=== PATIENT | female | born 1945 | race Caucasian/White ===

== ENCOUNTER 2019-01-19 14:18 | Inpatient (IN) | payer OTHER, MEDICARE ==
[~2019-01-19] VITALS: Ht 162.6 cm; Wt 45.5 kg
--- NOTE | 2019-01-19 14:28 | NUR ---
REC'D A 73/F IN RM 1T RAMÍREZ FROM [facility] IN [place] FOR CLOGGED GTUBE SINCE THE AM. HX OF HIV, RESP FAILURE. TRACHEOSTOMY- NO LONGER DEPENDENT ON RESPIRATORY, GASTROSTOMY NOTED TO MID RADHA, AND BAH. PT ALERT AND AWAKE, NONVERBAL, RESP E/U, IN NO ACUTE DISTRESS.
--- NOTE | 2019-01-19 14:33 | NUR ---
DR RAMSEY AT BEDSIDE FOR MSE.
--- NOTE | 2019-01-19 14:41 | NUR ---
DR RAMSEY AT BEDSIDE TO DECLOGGED GTUBE.
--- NOTE | 2019-01-19 15:02 | NUR ---
PER DR RAMSEY, UNABLE TO DECLOG GTUBE WITH HYDROGEN PEROXIDE, 7UP AND GTUBE BRUSH.
--- NOTE | 2019-01-19 15:13 | NUR ---
CENTRAL LINE NOTED TO LEFT SIDE OF NECK.
[2019-01-19] MEDS ORDERED: CIPRO250 MG PO (15:46)
[2019-01-19] MEDS ORDERED: NEPHRO-VITE VITA1 EA RC (15:47)
[2019-01-19] MEDS ORDERED: ASPIR 8181 MG GT (15:48)
[2019-01-19] MEDS ORDERED: NOR5 PEG (15:48)
[2019-01-19] MEDS ORDERED: PEPCID20 MG GT (15:49)
[2019-01-19] MEDS ORDERED: HYDRALAZINE HCL50 MG GT (15:51)
[2019-01-19] MEDS ORDERED: COLACE100 MG (15:52)
[2019-01-19] MEDS ORDERED: LEVOTHYROXIN0.025 M2 GT (15:52)
--- NOTE | 2019-01-19 16:04 | NUR ---
[facility] FROM [facility] APPROVED FOR INPATIENT OBSERVATION. OFFICE MESSENGER LUCY AND SCARLETT MADE AWARE. DR RAMSEY MADE AWARE.
[2019-01-19 16:09] LABS: BASOPHIL % 0.3 % (0-2); PLATELET COUNT 237 x10^3mcL (130-400)
[2019-01-19 16:11] LABS: RED CELL DISTRIBUTION WIDTH 16.5 % (11.5-14.5)
[2019-01-19 16:26] LABS: CALCIUM 8.6 mg/dL (8.5-10.1); CARBON DIOXIDE 25.1 mmol/L (21-32); CHLORIDE SERUM 110 mmol/L (98-107); CREATININE SERUM 0.7 mg/dL (0.6-1.0); GLUCOSE SERUM 102 mg/dL (74-106); POTASSIUM SERUM 3.4 mmol/L (3.5-5.1); SODIUM SERUM 146 mmol/L (136-145)
--- NOTE | 2019-01-19 16:29 | NUR ---
report given to amol vernon to assume care of the pt.
[2019-01-19 16:30] LABS: ALKALINE PHOSPHATASE 120 U/L (46-116); ALT/SGPT 19 U/L (14-59); AST/SGOT 15 U/L (15-37); BILIRUBIN TOTAL 0.31 mg/dL (0.20-1.00); TOTAL PROTEIN, SERUM 6.9 g/dL (6.4-8.2)
--- NOTE | 2019-01-19 16:35 | NUR ---
RIGHT WRIST CONTRACTED. PINK BANDAGE NOTED TO SACRUM. MULTIPLE ECCHYMOYSIS NOTED TO LEFT ARM.
[2019-01-19 16:36] LABS: ALBUMIN 1.9 g/dL (3.4-5.0)
--- NOTE | 2019-01-19 16:50 | NUR ---
RECEIVED PT FROM ED VIA GUERNEY, CAME IN DUE TO G-TUBE MALFUNCTIONING. PT IS ALERT AND AWAKE, NON-VERBAL. DOES NOT FOLLOW SIMPLE COMMANDS. NO SOB NOTED, LUNG SOUNDS DIMINISHED ON BASES, ON 1LPM/NC VIA TRACHEOSTOMY, O2 FBC=854%. W/ NON-PRODUCTIVE COUGH. NO S/S OF CHEST PAIN/PRESSURE. ABDOMEN IS SOFT, BOWEL SOUNDS ACTIVE. W/ PEG TUBE, CLAMPED. W/ BAH CATHETER SAMI 16, DRAINING W/ YELLOW, MILD CLOUDY URINE. W/ SACRAL ULCER COVERED W/ OPTIFOAM DRESSING, BUE SKIN TEARS W/ VERSATEL IN PLACE, AND BUE ECCHYMOSIS. RIGHT EYE IS RED, NO DRAINAGE NOTED. PT TURNED AND REPOSITIONED ON THE RIGHT SIDE, BLE ELEVATED W/ PILLOW. ON AIR MATTRESS. HOB ELEVATED AT 30 DEG. W/ RIJ TRIPLE LUMEN. HOB ELEVATED AT 30 DEG. SIDE RAILS UPX2. CALL LIGHT ON REACH. ENDORSED TO PRIMARY NURSE CADEN FOR CONTINUITY OF CARE
[2019-01-19 17:14] VITALS: BP 167/86
[2019-01-19 18:10] LABS: MAGNESIUM 1.9 mg/dL (1.8-2.4); PHOSPHOROUS 3.7 mg/dL (2.5-4.9)
[2019-01-19 18:11] LABS: CHOLESTEROL/HDL RATIO 2.6
--- NOTE | 2019-01-19 18:54 | NUR ---
NO ACUTE CHANGES AT THIS TIME. NO ACUTE RESP DISTRESS OR SOB NOTED. WILL ENDORSE TO INCOMING RN.
[2019-01-19] MEDS ORDERED: NORCO1 TA2 PEG (19:16)
--- NOTE | 2019-01-19 20:00 | NUR ---
RECEIVED PT IN BED, AWAKE/ALERT. NON VERBAL. UNABLE TO FOLLOW SIMPLE COOMMANDS. TRACH IN PLACE , WITH 02 AT 1L/MIN VIA TRACH COLLAR. HOB ELEVATED, NO ACUTE DISTRESS NOTED. GT CLAMPED. NPO MAINTAINED. ABD. SOFT,NON DISTENDED. BS ACTIVE. BAH CATH INTACT AND DRAINING YELLOW COLOR URINE. OPTIFOAM DRESSING TO SACRAL ULCER, SKIN TEAR TO BUE WITH VERSOTEL DRESSING. ECCHYMOTIC AREAS ALSO NOTED ON LUE.LT ARM CONTRACTED. TURNED AND REPOSITIONED. LIJ TRIPLE LUMEN INTACT AND ALL PORTS PATENT. HS CARE DONE. WILL CONTINUE TO MONITOR.
[2019-01-19 21:00] VITALS: BP 157/88
[2019-01-19 21:04] VITALS: BP 157/88
--- NOTE | 2019-01-19 23:04 | NUR ---
STARTED ON IVF, NS AT 100ML/HR, INFUSING VIA LIJ . WILL CONTINUE TO MONITOR.
[2019-01-20 01:08] LABS: UA SPECIFIC GRAVITY 1.015 (1.005-1.035); microscopic required? YES; urine erythrocyte NEGATIVE (NEGATIVE)
[2019-01-20 01:13] LABS: AMPHETAMINE QUAL UR NONE DETECTED (See below)
--- NOTE | 2019-01-20 02:13 | NUR ---
TURNED AND REPOSITIONED Q2HRS AND PRN. SUCTIONED PRN, KOJO. WELL. KEPT COMFORTABLE. IVF INTACT AND INFUSING WELL. WILL CONTINUE TO MONITOR.
--- NOTE | 2019-01-20 06:15 | NUR ---
B/P READS 194/97, , DR JAMES MADE AWARE, ORDER RECEIVED . HYDRALAZINE IV GIVEN ORDERED. WILL CONTINUE TO MONITOR.
--- NOTE | 2019-01-20 06:17 | NUR ---
AFEBRILE. IVF INTACT AND INFUSING WELL VIA LIJ. RESP. EVEN AND UNLABORED. [address] VIA TRACH COLLAR.NO ACUTE DISTRESS NOTED. TRACH CARE DONE. BAH CATH IN PLACE AND PATENT. NO BM DURING THE NIGHT. TURNED AND REPOSITIONED Q2HRS AND PRN. KEPT COMFORTABLE. WILL CONTINUE TO MONITOR.
[2019-01-20 07:05] VITALS: BP 141/118
[2019-01-20 08:21] VITALS: BP 140/100
[2019-01-20 09:01] LABS: BASOPHIL % 0.2 % (0-2); CALCIUM 8.6 mg/dL (8.5-10.1); CARBON DIOXIDE 23.6 mmol/L (21-32); CHLORIDE SERUM 110 mmol/L (98-107); CREATININE SERUM 0.7 mg/dL (0.6-1.0); GLUCOSE SERUM 79 mg/dL (74-106); PLATELET COUNT 309 x10^3mcL (130-400); POTASSIUM SERUM 3.5 mmol/L (3.5-5.1); SODIUM SERUM 145 mmol/L (136-145)
[2019-01-20 09:04] LABS: RED CELL DISTRIBUTION WIDTH 16.7 % (11.5-14.5)
--- NOTE | 2019-01-20 09:40 | NUR ---
PEG TUBE TO MID ABDOMEN REMOVED BY DR. LLANOS AT BEDSIDE. PT TOLERATED WELL. NO S/S OF PAIN. SITE WNL, SHRIMP TRAWLER, NO DRAINAGE NOTED. WILL CONTINUE TO MONITOR.
--- NOTE | 2019-01-20 11:45 | NUR ---
PT LAYING IN BED, EYES OPEN. NONVERBAL/MUTE. NO S/S OF ACUTE DISTRESS. NO SOB ON 1LNC TO TRACH, TRACH MIDLINE. PT CALM/COOPERATIVE AT THIS TIME. FALL PREC IN PLACE. OPTIFOAM CHANGED TO SACRUM, NOW CDI. BAH IN TACT DRAINING TO GRAVITY. BED IN LOW POSITION. CALL LIGHT WITHIN REACH. HOB ELEVATED. WILL CONTINUE TO MONITOR.
[2019-01-20 11:55] VITALS: BP 145/87
--- NOTE | 2019-01-20 13:30 | NUR ---
WOUND CARE EVALUATION NOTE: REASON FOR EVALUATION: PRESSURE ULCER WOUND SKIN ASSESSMENT DONE WITH PRIMARY RN ON THIS 73 Y/O FEMALE PT ADMITTED FROM [facility] WITH SACRALCOCCYX PRESSURE ULCER, SKIN WARM AND DRY,AND MULTIPLE ECCHYMOSIS TO UPPER EXTREMITIES. BLE NO HAIR GROWTH. DORSAL PEDAL PULSES PRESENT AND NORMAL. PLAN OF CARE DISCUSSED WITH PRIMARY RN. INTEGUMENTARY: -TRACH SITE EDMUND STOMA SKIN DRY AND CLEAN. SKIN INTACT. -GT SURGICAL SITE 0.5X0.5CM DEPTH UTD. SITE CLEAN AND DRY, GT WAS REMOVED. -MULTIPLE SKIN TEARS TO R/L FOREARMS WITH LARGEST TO RIGHT ARM 2.5X1 CM, AND LEFT FOREARMS 1.8X1 CM -SACRALCOCCYX PRESSURE INJURY STAGE 4, MUSCLE OBSERVED, 100 % GRANULATING TISSUE WITH 7X10X2.3CM, UNDERMINING 2.5 CM TOWARD 5 O'CLOCK DIRECTION, BUTTERFLY SHAPE, DARK PURPLE COLOR TO WOUND EDGE, EDMUND-WOUND SKIN INTACT, MODERATE AMOUNT PURULENT DRAINAGE, MILD ODOR -BILATERAL HEELS BLANCHABLE REDNESS RECOMMENDATIONS: -WOUND CULTURE OBTAINED, PENDING RESULT -CLEANS GT SITE WITH NS. PAT DRY AND COVER WITH DRY DRESSING. -CLEANSE SKIN TEARS TO R/L FORARMS WITH NS. PAT DRY, APPLY VESATEL DRESSING Q5 DAYS AND PRN IF SOILING -CLEANSE SACRALCOCCYX PRESSURE ULCER WITH WOUND CARE SOLUTION, PAT DRY, PACK WITH CALCIUM ALGINATE DRESSING TO WOUND BED, COVER WITH 4X4 DRESSING AND OPTIFOAM QD AND PRN IF SOILING -HEEL PROTECTORS BILATERAL HEELS -TURN AND REPOSITION PATIENT Q 2H -ASSESS AND MONITOR SKIN CONDITION DURING POSITION CHANGE -OFFLOAD BILATERAL HEELS BY PLACING PILLOWS UNDER CALVES AT ALL TIMES, UNLESS OTHERWISE CONTRAINDICATED -PRESSURE REDISTRIBUTION SURFACE THERAPY -KEEP SKIN CLEAN AND DRY AT ALL TIMES ALL ABOVE RECOMMENDATIONS DISCUSSED WITH PRIMARY RN WILL FOLLOW UP Q7-10 DAYS, PLEASE CONTACT WOUND CARE NURSE FOR ANY QUESTIONS AND CHANGE OF SKIN CONDITION
--- NOTE | 2019-01-20 16:06 | NUR ---
WOUND CARE PROVIDED PER PHYSICIAN ORDER: SKIN TEARS TO RUE X1, LUE X2 CLEANSED WITH NS, GENTLY PATTED DRY, VERSATEL APPLIED TO SKIN TEARS. GUTUBE SITE CLEANSED WITH NS, PATTED DRY, COVERED WITH DRY DRESSING. PT TOLERATED WELL. NO S/S OF ACUTE DISTRESS. WILL CONTINUE TO MONITOR.
[2019-01-20 16:55] VITALS: BP 160/89
[2019-01-20 18:16] VITALS: BP 137/91
--- NOTE | 2019-01-20 18:17 | NUR ---
PT RESTING IN BED WITH BOTH EYES CLOSED. NO S/S OF ACUTE DISTRESS. NO SOB ON 1L TO TRACH COLLAR. BP TRENDING DOWN, SEE CHART. NO S/S OF PAIN. DRESSINGS TO BUE/SACRAL COCCYX CDI. LIJ WNL, PATENT AND FLUSHES WELL. IV FLUIDS FLOWING. DRESSING CDI. BLE ELEVATED. AIR MATTRESS IN PLACE. HOB ELEVATED. BAH INTACT DRAINING TO GRAVITY WITH NO DEPENDENT LOOPS. BED IN LOW POSITION. CALL LIGHT WITHIN REACH. SIDE RAILS UPX2. AIR MATTRESS IN PLACE. WILL ENDORSE TO ONCOMING SHIFT.
--- NOTE | 2019-01-20 20:00 | NUR ---
RECEIVED PT IN BED, AWAKE, NON VERBAL, UNABLE TO FOLLOW COMMANDS. 02 AT 1L/MIN VIA TRACH. KOJO. WELL. NO ACUTE DISTRESS NOTED. DRESSING TO ABD, GT SITE DRESSING DRY AND INTACT. REMAINS NPO , NO N/V NOTED. IVF, NS AT 100ML/HR, INTACT AND INFUSING VIA LIJ TRIPLE LUMEN, SITE DRESSING DRY AND CLEAN. ALL PORTS PATENT. BAH CATH INTACT AND DRAINING YELLOW COLOR URINE. DRESSINGS TO SACRAL AREA , SKIN TEARS TO BUE DRY AND INTACT. ECCHYMOSIS TO BUE, ON AIR MATTRESS.HEEL PROTECTORS IN PLACE. WILL TURN AND REPOSITION Q2HRS AND PRN.WILL CONTINUE TO MONITOR.
[2019-01-20 20:18] VITALS: BP 153/79
--- NOTE | 2019-01-20 22:20 | NUR ---
TURNED AND REPOSITIONED Q2HRS AND PRN. PT PLACED ON SUPINE POSITION AT THIS TIME. WILL CONTINUE TO MONITOR.
--- NOTE | 2019-01-21 03:13 | NUR ---
SUCTIONED PRN. TURNED AND REPOSITIONED FOR COMFORT. IVF INTACT AND INFUSING WELL. WILL CONTINUE TO MONITOR.
--- NOTE | 2019-01-21 03:15 | NUR ---
DR JAMES MADE AWARE OF ABNORMAL LAB RESULT.
--- NOTE | 2019-01-21 04:00 | NUR ---
PLACED ON CONTACT ISOLATION FOR POSITIVE MRSA NARES. DR ERIKA FALLON.
[2019-01-21 04:47] VITALS: BP 151/76
--- NOTE | 2019-01-21 06:11 | NUR ---
AFEBRILE AND VITAL SIGNS STABLE. RESP. EVEN AND UNLABORED. 02 AT 1L/MIN VIA TRACH COLLAR, KOJO. WELL. SUCTIONED PRN. TRACH CARE DONE. HOB ELEVATED. NPO MAINTAINED. IVF, D5NS AT 100ML/HR INTACT AND INFUSING VIA LIJ. TRIPLE LUMEN. BAH CATH INTACT AND PATENT. TURNED AND REPOSITIONED Q2HRS AND PRN. KEPT COMFORTABLE. WILL CONTINUE TO MONITOR.
--- NOTE | 2019-01-21 07:26 | NUR ---
RECEIVED PT FROM SHIFT NURSE ASLEEP BUT AROUSABLE. RESP EVEN AND UNLABORED ON 1L TRACH. IV INTACT AND PATENT. BAH CATH IN PLACE. FALL PRECAUTIONS IN PLACE. BED IN LOW POSITION. CALL LIGHT WITHIN REACH. WILL BE ENDORSED.
[2019-01-21 08:09] VITALS: BP 158/79
--- NOTE | 2019-01-21 10:15 | NUR ---
PT AWAKE RESTING IN BED. NO ACUTE DISTRESS NOTED. BED IN LOW POSITION. WILL CONTINUE TO MONITOR.
[2019-01-21 10:39] VITALS: Ht 162.6 cm; Wt 45.5 kg
--- NOTE | 2019-01-21 11:56 | NUR ---
PT LEFT FOR PROCEDURE.
--- NOTE | 2019-01-21 13:30 | NUR ---
PT BACK FROM PROCEDURE.
--- NOTE | 2019-01-21 15:10 | NUR ---
PT ASLEEP BUT AROUSABLE. NO ACUTE DISTRESS NOTED. BED IN LOW POSITION. CALL LIGHT WITHIN REACH. WILL CONTNUE TO MONITOR.
[2019-01-21 16:35] VITALS: BP 113/63
--- NOTE | 2019-01-21 16:59 | NUR ---
CLEANSED WITH NS AND CHANGED DRESSING TO BUE. CLEANED SACRAL AREA WITH NS AND PACKED WITH DRY DRESSING. APPLIED OPTIFOAM.
--- NOTE | 2019-01-21 18:05 | NUR ---
PT ASLEEP BUT AROUSABLE. NO ACUTE DISTRESS NOTED. RESP EVEN AND UNLABORED ON 2L TRACH. BAH CATH IN PLACE DRAINING YELLOW URINE. GTUBE FEEDING AT 30 ML AND TOLERATING WELL. FALL PRECAUTIONS IN PLACE. BED IN LOW POSITION. WILL BE ENDORSED.
--- NOTE | 2019-01-21 19:20 | NUR ---
REC'D PT FROM DAY NURSE. PT RESTING IN BED AND AWAKE. NONVERBAL. DOES NOT FOLLOW COMMANDS. PERRLA. NO FACIAL DROOP. MED SURG, NO TELE. NO S/SX OF CP. TRACH SECURED WITH COLLAR. 2L, 99%. PT SOUNDS CONGESTED, SUCTIONED WHITE SPUTUM. RT PROTOCOL. ASP PREC. ABD SOFT/ROUND/NONTENDER. PEG TO LUQ INFUSING JEVITY 1.2 @ 30 ML/HR WITH 30 ML FWF Q6H. GOAL RATE 50 ML/HR. NO RESIDUAL. ABD DRESSING TO ABD CDI. BAH DRAINING YELLOW URINE TO GRAVITY. EDEMA TO RH. CONTRACTURES BUE/BLE. AIR MATTRESS IN PLACE. REPOSITIONING Q2H. SKIN TEARS BUE WITH VERSATEL DRESSINGS CDI. ECCHYMOSIS BUE. OPTIFOAM DRESSING TO COCCYX CDI. LIJ CENTRAL LINE. X1 PORT INFUSING D5NS @ 100 ML/HR. X2 PORTS FLUSHED AND PATENT. CALL LIGHT WITHIN REACH, BED AT LOWEST POSITION, BED ALARM ON, SIDE RAILS UP X3. WILL CONTINUE TO MONITOR.
[2019-01-21 20:50] VITALS: BP 176/97
--- NOTE | 2019-01-21 20:51 | NUR ---
BP ELEVATED 176/97 AND 167/109. DR. LIRIANO MADE AWARE SCHEDULED BP MEDS HAVE BEEN MISSED X2 DAYS D/T MALFUNCTIONING PEG. STATED OK TO GIVE PRN IV HYDRALIZINE AND RESUME PO MEDS IN AM.
--- NOTE | 2019-01-21 20:55 | NUR ---
UNABLE TO GIVE IV HYDRALIZINE BC PT IS MED SURG. DR. LIRIANO AND DR. JAMES MADE AWARE. STATED WILL ORDER PO HYDRALIZINE.
--- NOTE | 2019-01-21 21:40 | NUR ---
HYDRALIZINE 20 MG GIVEN VIA PEG FOR ELEVATED BP. NO RESIDUAL NOTED. TF INCREASED TO 40 ML/HR. GOAL 50 ML/HR. WILL CONTINUE TO MONITOR.
--- NOTE | 2019-01-21 22:50 | NUR ---
BP STILL ELEVATED S/P HYDRALIZINE VIA PEG. CURRENT BP 192/79. DR LIRIANO AND DR JAMES MADE AWARE. STATED WILL PUT PT ON TELE AND GIVE IV HYDRALIZINE.
--- NOTE | 2019-01-21 23:18 | NUR ---
TELE 9 APPLIED, NSR WITH PAC'S. PT HAS A CONGESTED COUGH. SUCTIONED SCANT CLEAR TO WHITE SPUTUM. REPOSITIONED. HOB UP. TF INFUSING @ 40 ML/HR. HEELS/ELBOWS OFFLOATED. WILL CONTINUE TO MONITOR.
[2019-01-22] VITALS (8 sets, daily range): BP systolic 105–173; BP diastolic 61–88
--- NOTE | 2019-01-22 | NUR ---
BP 167/71, HR 93. DR. JAMES MADE AWARE. NO FURTHER ORDERS. OK TO JUST MONITOR. ALSO MADE AWARE OF GRAM STAIN RESULTS OF WOUND CULTURE.
--- NOTE | 2019-01-22 01:22 | NUR ---
PT RESTING IN BED WITH EYES CLOSED. NO SIGNS OF DISTRESS OR PAIN NOTED. BREATHING EVEN/UNLABORED ON 1L O2 VIA TRACH COLLAR. REPOSITIONED. LAYING IN LOW FOWLERS POSITION. HEELS/ELBOWS OFFLOADED. RESIDUAL CHECKED PER PROTOCOL: NONE. TF INFUSING @ 40 ML/HR. CALL LIGHT WITHIN REACH, BED AT LOWEST POSITION.
--- NOTE | 2019-01-22 03:36 | NUR ---
TF INFUSING @ 40 ML/HR, NO RESIDUAL. RATE INCREASED TO 50 ML/HR PER ORDER. GOAL RATE ACHIEVED. PT REPOSITIONED. RESTING COMFORTABLY IN BED. NO S/SX OF PAIN NOTED. RESPIRATIONS EVEN/UNLABORED. WILL CONTINUE TO MONITOR.
--- NOTE | 2019-01-22 04:55 | NUR ---
PAGEGATED DR. JAMES. REQUESTED TO CHANGE PRILOSEC TO PROTONIX. UNABLE TO ADMINISTER PRILOSEC THROUGH GT. ALSO REMINDED OF WOUND CX GROWING GRAM NEG BACILLI.
--- NOTE | 2019-01-22 06:11 | NUR ---
PT AWAKE AND RESTING IN BED. BREATHING EVEN/UNLABORED ON 1L VIA TRACH COLLAR. SPO2 100%. PT HAS A CONGESTED COUGH. SUCTIONED PRN. PT HAS BEEN REPOSITIONED Q2H. TF INFUSING @ 50 ML/HR, NO RESIDUAL. BP 173/84, HR 91. DR. JAMES MADE AWARE. AM BP MEDS GIVEN EARLY PER ORDER. BAH CARE PROVIDED. CLEANSED WITH CHG WIPES. LAB AT BEDSIDE TO DRAW BLOOD. NO BLOOD RETURN FROM CENTRAL LINE. CALL LIGHT WITHIN REACH, BED AT LOWEST POSITION. WILL ENDORSE TO DAY NURSE.
[2019-01-22 06:46] LABS: BASOPHIL % 0.2 % (0-2); PLATELET COUNT 250 x10^3mcL (130-400)
--- NOTE | 2019-01-22 07:00 | NUR ---
RECEIVED REPORT FROM [place] RN, PT IN NO ACUTE DISTRESS
[2019-01-22 07:16] LABS: CALCIUM 7.8 mg/dL (8.5-10.1); CHLORIDE SERUM 115 mmol/L (98-107); CREATININE SERUM 0.6 mg/dL (0.6-1.0); GLUCOSE SERUM 141 mg/dL (74-106); POTASSIUM SERUM 3.1 mmol/L (3.5-5.1); SODIUM SERUM 148 mmol/L (136-145)
--- NOTE | 2019-01-22 07:20 | NUR ---
PT RESTING IN BED, SLEEPING BUT EASILY AROUSABLE, NON-VERBAL, NOT FOLLOW COMMANDS. PERRLA. NO FACIAL DROOP. TELE # 9, NSR, HR NOTED 101 AT THIS TIME, TRACH SECURED WITH COLLAR, MIDLINE, 1L/MIN, 100%, DIM BLL, SUCTIONED PRN RT PROTOCOL AT BEDSIDE. ASPIRATION PRECAUTION, HOB ELEVATED, ABD SOFT, ROUND AND NONTENDER TO TOUCH, PEG TO LUQ INFUSING JEVITY 1.2 @ 50 ML/HR WITH 30 ML FWF Q6H. BS HYPOACTIVE X 4, DRESSING TO ABD CDI. BAH PATENT AND DRAINING YELLOW URINE TO GRAVITY. EDEMA TO RH 1+, PALP PULSES, CONTRACTURES BUE/BLE. LALM, REPOSITIONING Q2H. SEE SKIN ASSESSMENT, DRESSING CDI, LIJ CENTRAL LINE PATENT, DRESSING CDI, X1 PORT INFUSING D5NS @ 100 ML/HR. X2 PORTS FLUSHED AND PATENT. CALL LIGHT WITHIN REACH, BED AT LOWEST POSITION, BED ALARM ON, SIDE RAILS UP X2. WILL CONTINUE TO MONITOR.
[2019-01-22 07:44] LABS: RED CELL DISTRIBUTION WIDTH 17.3 % (11.5-14.5)
--- NOTE | 2019-01-22 09:35 | NUR ---
PT IN NO ACUTE RESP DISTRESS, IN BED, AM MED GIVEN PER MD ORDER, TAKEN WELL, NO ASE NOTED AT THIS TIME, ALL NEEDS ADDRESSED, SAFETY PROTOCOL FOLLOWED, CONTINUE TO MONITOR
--- NOTE | 2019-01-22 10:51 | NUR ---
FAMILY MEMBER CALLED AND GOT UPDATED W/ PT NEW ORDER AND CONDITION, QUESTIONS ASKED AND ANSWERED, NO FURTHER CONCERNS NEEDED AT THIS TIME
--- NOTE | 2019-01-22 12:42 | NUR ---
BAH CATH CARE DONE, BAH PATENT AND INFUSING WELL W/ NO OBSTRUCTION, PT IN BED W/ NO ACUTE RESP DISTRESS, ALL NEEDS ADDRESSED AT THIS TIME, ASSISTED TURNING Q2H, CONTINUE TO MONITOR
--- NOTE | 2019-01-22 13:25 | NUR ---
WOUND CARE DONE AT BEDSIDE, PT TAKEN WELL, IN NO ACUTE DISTRESS, SAFETY PROTOCOL FOLLOWED, ASSISTED TO TURN Q2H, TOLERATED WELL, CONTINUE TO MONITOR
--- NOTE | 2019-01-22 13:33 | NUR ---
Initial Nutrition Assessment: 243T/A JULIO GUSTAFSON IA HR Dx: G- tube malfunction PMHx: HIV, HTN, developmental delay, acute/chronic respiratory failure s/p tracheostomy and s/p PEG tube placement, Vit B12 deficiency, Anemia of Chronic Disease, Chronic Kidney Disease, Atrial fibrillation PSHx: Other (G tube placement) Labs: NA 148H, K 3.1L, BG 141H, HGB 7.4L Meds: D 5%, norco, synthyroid, zofran Diet: TF Jevity 1.2 @ 30 ml/hr, goal 50 ml/hr, FWF 30 ml Q6H PO Intake: NPO Ht: 162.56 cm (64") Wt: 45.5 kg (100#) BMI: 17.2 kg/m2 Bed scale: 45 kg IBW: 120# (55 kg) %IBW: 83 UBW: unable to access Age: 73/F Food Allergies: NKFA Skin: sacral ulcer, skin tear on arm Alex: 12 Edema: trace arm GI: Last BM: 01/20 Per H&P, Pt is a 73 yo F with history of HIV, HTN, developmental delay, acute/chronic respiratory failure s/p tracheostomy and s/p PEG tube placement who was brought to ED by ambulance from [facility] for an obstructed G-tube since morning of 01/19/19. RDN Visit (01/22): Patient appeared extremely emaciated. Jevity 1.2 was running at goal rate of Per progress note (01/21) Patient scheduled to have PEG tube placed today with . 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 Patient developmentally delayed and nonverbal at baseline. Per RN Thi, patient is receiving IV fluids and therefore FWF are only @ 30 ml Q6H. Discussed with her the importance of increasing FWF once IV fluids as D/C'ed. Discussed recommendations with HSE ADVISOR Murray. Problem with: N/V/D/C: none per RN Problems with: Chewing/Swallowing: N/A Current appetite: unable to access Recent wt change: unable to access %wt change: n/a Vitamin/Supplement use: unable to access Special diet at home: unable to access Physical activity: bed bound Nutrition education given: not appropriate at this time as patient is non-verbal Food-drug interactions: none Education given: n/a Estimated Nutritional Needs Based on current body weight 45 kg Energy: 6850-0030 kcal/d (30-35 kcal/kg) Protein: 45-54 g/d (1.0-1.2 g/kg) - HIV vs CKD Fluid: 6633-3459 ml/d (1 ml/kcal) or per doctor Nutrition Diagnosis 1. Malnutrition related to increased metabolic demands, HIV, G-tube dependence as evidenced by BMI 17.2 kg/m2 Intervention 1. Recommend continuing Jevity 1.2 @ 50 ml/hr. FWF 60 ml Q4H. This provides 1440 kcal and 67g protein, 968 ml free water. 2. Discussed recommendations with HSE ADVISOR Murray. Increase FWF to 60 ml Q4H once other forms of IV hydration are D/C'ed. Monitor/Evaluate Goal: TF intake at least 75% of estimated needs Monitor: TF intake/ tolerance, Labs, GI function F/U in 2-3 days as high risk 01/24-
--- NOTE | 2019-01-22 13:34 | NUR ---
1. Recommend continuing Jevity 1.2 @ 50 ml/hr. FWF 60 ml Q4H. This provides 1440 kcal and 67g protein, 968 ml free water. 2. Discussed recommendations with SISSY Gao. Increase FWF to 60 ml Q4H once other forms of IV hydration are D/C'ed.
--- NOTE | 2019-01-22 16:50 | NUR ---
LAB REPORT MRSA (+) TO COCCYX WOUND AREA, SOFTWARE SECURITY ARCHITECT YAMILET KRUGER MADE AWARE, CHARGE NURSE LASHELL MADE AWARE, CONTINUE TO MONITOR
--- NOTE | 2019-01-22 17:04 | NUR ---
PT SLEEPIGN IN BED, IN NO APPARENT DISTRESS/PAIN/DISCOMFORT, IV PATENT AND INFUSING WELL, GT PATENT AND INFUSING WELL, DRESSING CDI, ALL NEEDS ADDRESSED AT THIS TIME, ASSITED TO TURN Q2H, FC PATENT AND DRAINED WELL W/ GRAVITY, SAFETY PROTOCOL FOLLOWED, CONTINUE TO MONITOR
--- NOTE | 2019-01-22 18:12 | NUR ---
PT SLEEPING IN BED, IN NO APPARENT DISTRESS/PAIN/DISCOMFORT, ASSITED TO TURN Q2H, NO FACIAL DROOP, TRACH W/ NECK COLAR IN MIDLINE AT 1L/MIN, NO COUGH, RESP EVEN AND NON-LABORED, CHEST RISE SYMMETRICALLY, ABD FLAT AND NON-TENDER TO TOUCH, TELE #9, NSR W/ PVC, CENTRAIL LINT TO LIJ PATENT AND INFUSING WELL, PORT X 2 FLUSING WELL, PEG TUBE TO LUQ PATENT AND INFSING WELL, F/C PATENT AND DRAINING WELL W/ GRAVITY, YELLOW URINE, NO SEDIMENT, WOUND CARE DONE W/IN SHIFT, DRESSING CDI, LALM, CONTACT ISOLATION, BEDBOUND, INCONTINENT, ALL NEEDS ADDRESSED AT THIS TIME, SAFETY PRECAUTION FOLLOWED, WILL ENDORSE TO ONCOMING RN
--- NOTE | 2019-01-22 19:30 | NUR ---
REC'D PT FROM DAY NURSE. PT RESTING IN BED. SLEEPING. AWAKENS WITH TACTILE STIMULI. NONVERBAL. UNABLE TO ASSESS ORIENTATION. DOES NOT FOLLOW COMMANDS. HX DEVELOPMENTAL DELAY. TELE 9, NSR. NO S/SX OF CP. PITTING EDEMA RUE. NO SIGNS OF DISTRESS NOTED. RESPIRATIONS EVEN/UNLABORED/SHALLOW. TRACH COLLAR, 1L 02, SPO2 98%. CONGESTED COUGH- SUCTIONED WHITE TO LIGHT YELLOW SPUTUM. ABD SOFT/ROUND. NO GRIMACE WITH PALPATION. PEQ LUQ INFUSING JEVITY @ 50 ML/HR, FWF 30 ML Q6. NO RESIDUAL. BAH DRAINING YELLOW URINE TO GRAVITY. GEN WEAKNESS. CONTRACTURES BUE/BLE. AIR MATTRESS. REPOSITIONING Q2H. BUE ECCHYMOSIS WITH SKIN TEARS, VERSATEL DRESSINGS CDI. OPTIFOAM TO SACRAL-COCCYX CDI. NO S/SX OF PAIN. IV TO LIJ, X1 PORT PATENT AND INFUSING, X2 PORTS FLUSHED AND PATENT. SITE WNL. CALL LIGHT WITHIN REACH, BED AT LOWEST POSITION, SIDE RAILS UP X3, CONTACT PREC IN PLACE. WILL CONTINUE TO MONITOR.
--- NOTE | 2019-01-22 23:35 | NUR ---
RESIDUAL CHECKED PER PROTOCOL: NONE. LIGHT GREEN SPUTUM NOTED TO TRACH TUBING, SUCTIONED. PT ALSO DEEP SUCTIONED. REPOSITIONED. NO SIGNS OF DISTRESS OR PAIN NOTED. WILL CONTINUE TO MONITOR.
--- NOTE | 2019-01-23 00:46 | NUR ---
SPOKE TO DR. JAMES. MADE AWARE WOUND C&S DOES NOT HAVE VANCO LISTED AN ABX SENSITIVE TO BACTERIA.
--- NOTE | 2019-01-23 02:15 | NUR ---
PT AWAKE AND RESTING IN BED. QUIET AND CALM. CONGESTED COUGH- PT SUCTIONED PRN. NO SIGNS OF DISTRESS OR PAIN NOTED. TF INFUSING @ 50 ML/HR. BAH DRAINING URINE TO GRAVITY. HEELS/ELBOWS OFFLOADED. CALL LIGHT WITHIN REACH, BED AT LOWEST POSITION. WILL CONTINUE TO MONITOR.
--- NOTE | 2019-01-23 05:51 | NUR ---
PT AWAKE AND RESTING IN BED. PT CONGESTED. RT AT BEDSIDE FOR TRACH CARE AND SUCTIONED THE PT. RESPIRATIONS SHALLOW AND UNLABORED. NO S/SX OF PAIN NOTED. BAH CARE PROVIDED. CLEANED WITH CHG WIPES. NO BM. TF INFUSING @ 50 ML/HR, NO RESIDUAL NOTED. NO SIGNIFICANT CHANGES DURING SHIFT. CALL LIGHT WITHIN REACH, BED AT LOWEST POSITION. WILL ENDORSE TO DAY NURSE.
[2019-01-23 06:04] VITALS: BP 133/88
--- NOTE | 2019-01-23 06:39 | NUR ---
REC'D ORDERS FOR HYDRALAZINE PRN AND LISINOPRIL DAILY. PER DR. JAMES, GIVE HYDRALAZINE FIRST. BP 166/55, MAP 92, HR 59. UNABLE TO GIVE D/T HR 59; PARAMETERS TO HOLD IF HR<65. ALSO, PT REFUSING THE MEDICATION. STATED SHE HAS BEEN "TAKING TOO MUCH MEDICINE." PT WOULD LIKE TO WAIT LONGER FOR THE [facility] TO KICK IN. WILL ENDORSE TO DAY NURSE.
--- NOTE | 2019-01-23 07:15 | NUR ---
RECIEVED PT FROM NIGHT NURSE. PT IS LAYING DOWN IN BED WITH HOB UP RESTING. PT LOOKS TO BE IN NO ACUTE DISTRESS AT THIS TIME. RESPIRATIONS EVEN AND UNLABORED ON 1L TRACH. CHECKED RESIDUAL < 5ML AND RETURNED TO PT. IV SITE PATENT WITH NO SIGNS OF ERYTHEMA OR SWELLING WITH IV FLUIDS INFUSING. TELE MONITOR PRESENT. SUCTIONED PT, PT TOLERATED WELL. CALL LIGHT WITHIN REACH. WILL CONTINUE TO MONITOR.
[2019-01-23 08:10] VITALS: BP 180/85
[2019-01-23 08:51] LABS: BASOPHIL % 0.3 % (0-2); PLATELET COUNT 229 x10^3mcL (130-400)
[2019-01-23 08:54] LABS: RED CELL DISTRIBUTION WIDTH 17.6 % (11.5-14.5)
[2019-01-23 09:26] LABS: CALCIUM 7.6 mg/dL (8.5-10.1); CARBON DIOXIDE 22.8 mmol/L (21-32); CHLORIDE SERUM 117 mmol/L (98-107); CREATININE SERUM 0.5 mg/dL (0.6-1.0); GLUCOSE SERUM 135 mg/dL (74-106); POTASSIUM SERUM 3.8 mmol/L (3.5-5.1); SODIUM SERUM 151 mmol/L (136-145)
--- NOTE | 2019-01-23 09:45 | NUR ---
PERFORMED WOUND CARE OF COCCYX WOUND. PT TOLERATED WELL. WOUND HAS SOME SMELL WITH MINIMAL DRAINAGE AND SLOUGH TO WOUND. DRESSING IS CDI. REPOSITIONED PT. WILL CONTINUE TO MONITOR.
[2019-01-23] MEDS ORDERED: ROC1I IM (11:03)
[2019-01-23 11:55] VITALS: BP 150/77
--- NOTE | 2019-01-23 12:15 | NUR ---
CHECKED RESIDAL <5ML AND RETURNED TO PT. CHANGED FEEDING BAG AND TUBING.
[2019-01-23 14:17] VITALS: BP 150/77
[2019-01-23 16:19] VITALS: BP 141/69
--- NOTE | 2019-01-23 17:45 | NUR ---
REPOSITIONED PT AND PREFORMED PASSIVE RANGE OF MOTION EXERCISES TO BUE AND BLE. PT ABLE TO MINIMALLY RELAX EXTREMITIES TO PERFORM PASSIVE ROM, LIMITED ROM. WILL CONTINUE TO MONITOR.
--- NOTE | 2019-01-23 18:58 | NUR ---
PT IS LAYING DOWN IN BED WITH HOB UP RESTING. PT LOOKS TO BE IN NO ACUTE DISTRESS AT THIS TIME AND LOOKS TO BE IN NO PAIN. IV SITE TO LIJ IS PATENT WITH NO SIGNS OF ERYTHEMA OR SWELLING WITH I PORT INFUSING AND OTHER 2 H/L. RESPIRATIONS EVEN AND UNLABORED ON 1L TRACH. SUCTIONED PT AND REMOVED ABOUT 5ML OF YELLOW/ WHITE SPUTUM. PT TOLERATED SUCTION WELL. PT MADE COMFORTABLE IN BED. CALL LIGHT WITHIN REACH. WILL ENDORSE TO ONCOMING SHIFT.
--- NOTE | 2019-01-23 20:00 | NUR ---
RECEIVED PT IN BED, RESTING QUIETLY. NON VERBAL, UNABLE TO FOLLOW COMMANDS. TRACH IN PLACE, SECURED BY COLLAR, 02 AT 1L/MIN , HOB ELEVATED, KOJO. WELL. NO ACUTE DISTRESS NOTED. SR ON THE MONITOR, NO EVIDENCE OF ANY DISCOMFORT NOTED AT THIS TIME. IVF,D5NS AT 100ML/HR, INFUSING VIA LIJ TRIPLE LUMEN, SITE DRESSING CLEAN AND DRY. ALL PORTS PATENTTOL. GT FEEDING, JEVITY 1.2 AT 50ML/HR, MIN. RESIDUAL NOTED. BAH CATH INTACT AND DRAINING YELLOW COLOR URINE. DRESSINGS TO COCCYX/ SKIN TEAR SITE DRY AND INTACT. ON AIR MATTRESS, WILL TURN AND REPOSITION Q2HRS AND PRN. WILL CONTINUE TO MONITOR.
[2019-01-23 20:56] VITALS: BP 149/81
--- NOTE | 2019-01-23 22:13 | NUR ---
TURNED AND REPOSITIONED Q2HRS AND PRN. KEPT COMFORTABLE. WILL CONTINUE TO MONITOR.
--- NOTE | 2019-01-24 01:01 | NUR ---
KOJO. GT FEEDING, MIN. RESIDUAL NOTED. TURNED AND REPOSITIONED . PLACED ON SUPINE POSITION AT THIS TIME. WILL CONTINUE TO MONITOR.
--- NOTE | 2019-01-24 02:19 | NUR ---
EYES CLOSED, RESTING QUIETLY, EASILY AROUSABLE. KEPT COMFORTABLE. WILL CONTINUE TO MONITOR.
--- NOTE | 2019-01-24 05:50 | NUR ---
AFEBRILE AND VITAL SIGNS STABLE. TRACH SECURED WITH TRACH COLLAR, SUCTIONED PRN. TRACH CARE DONE. HOB ELEVATED, NO ACUTE DISTRESS NOTED. DUE MEDS GIVEN ORDERED, KOJO. WELL. KOJO. GT FEEDING, MIN. RESIDUAL NOTED. IVF INTACT AND INFUSING VIA LIJ TRIPLE LUMEN. BAH CATH INTACT AND DRAINING YELLOW COLOR URINE. NO BM NOTED . TURNED AND REPOSITIONED Q2HRS AND PRN. CLEANED AND KEPT COMFORTABLE. ISOLATION PREC. MAINTAINED. WILL CONTINUE TO MONITOR.
[2019-01-24 06:18] VITALS: BP 106/65
--- NOTE | 2019-01-24 07:28 | NUR ---
RECEIVED PT FROM NIGHT NURSE. PT IS LAYING DOWN IN BED WITH HOB UP RESTING. PT LOOKS TO BE IN NO ACUTE DISTRESS AND LOOKS TO HAVE NO S/S OF PAIN. RESPIRATIONS EVEN AND UNLABORED ON 1L TRACH. TRACH TUBE SECURED WITH COLLAR. BAH PRESENT. PEG TUBE PRESENT, PATENT AND INFUSING TUBE FEEDING. RESIDUAL <5ML AND RETURNED TO PATENT. TELE MONITOR PRESENT. CENTRAL LINE TO LIJ PATENT AND 1 PORT INFUSING, OTHER 2 PORTS H/L. NO BLOOD RETURN FROM ANY PORTS. BED IN LOWEST POSITION, CALL LIGHT WITHIN REACH. WILL CONTINUE TO MONITOR.
[2019-01-24] MEDS ORDERED: VAN1I IV (07:54)
[2019-01-24 08:11] VITALS: BP 162/99
--- NOTE | 2019-01-24 09:45 | NUR ---
GAVE PT HIBICLENS BATH WELL A NEW GOWN. PT TOLERATED WELL. CHANGED DRESSING TO SACRAL COCCYX AREA, WOUND BED ERYTHEMA, DARK SUROUNDING SKIN. UNDERMINNING NOTED. NO ODOR NOTED. CLEANSED WOUND AND APPLIED NEW DRESSING. PT TOLERATED WELL. PT COUGHING, RT CALLED AND SUCTIONED PT. PT LOOKS TO BE IN NO ACUTE DISTRESS AND LOOKS TO BE IN NO PAIN AT THIS TIME. CHANGED TUBE FEEDING, <5ML RESIDUAL. BED IN LOWEST POSITION, CALL LIGHT WITHIN REACH. WILL CONTINUE TO MONITOR.
[2019-01-24 11:59] VITALS: BP 147/86
--- NOTE | 2019-01-24 16:00 | NUR ---
CALLED TO [facility] , SPOKE TO RN.SALESPERSON TERRAZZO TILES SEB. NO ISOLATION BED AVAILABLE TODAY. JESU AND PATIENT'S FAMILY MADE AWARE.
[2019-01-24 16:55] VITALS: BP 131/68
--- NOTE | 2019-01-24 19:33 | NUR ---
RECIEVED PT FROM DAY SHIFT NURSE. PT NON VERBAL, OPENS EYES TO VERBAL STIMULI. PT IS ON TELE #9 SR HR 91. NO DISCOMFORT NOTED. PT HAS PALPABLE PULSES, EDEMA NOTED TO THE RUE. SCD IN PLACE. PT LUNG SOUNDS CONGESTED BILATERALLY. NO RESP DISTRESS NOTED. BREATHING EVEN AND UNLABORED. PT ON 1L TRACH. NO SUCTION REQUIRED AT THIS TIME. PT HAS HYPOACTIVE BOWEL SOUNDS. LAST BM 01/20. PT HAS PEG TUBE TO LUQ, DRESSING INTACT, NO DRAINAGE NOTED. BAH CATH IN PLACE, DRAINAING YELLOW OUTPUT. PT HAS GENERALIZED WEAKNESS, BED BOUND. ON AIR MATRESS, REPOSTIONED. PT HAS SKIN TEARS AND ECCHYMOSIS TO BUE, NO DRAINGE NOTED, INVESTIGATION DIVISION LIEUTENANT. PT HAS COCCYX ULCER COVERED WITH DRESSING, CDI. PT HAS CENTRAL LINE TO LEFT SIDE OF NECK, CDI. WILL CONT TO MONITOR, CALL LIGHT WITHIN REACH.
[2019-01-24 20:51] VITALS: BP 141/72
--- NOTE | 2019-01-24 22:43 | NUR ---
G TUBE RESIDUAL 30ML. FEEDING INFUSING AT 50 ML. ABD SOFT AND DISTNEDED. NO DISCOMFORT NOTED.
--- NOTE | 2019-01-24 23:18 | NUR ---
PT REPOSITONED. PT REMAINS ON AIR MATRESS. LEGS ELEVATED ON PILLOW. PT IN NO RESP DISTRESS. WILL CONT TO MONITOR.
[2019-01-25 06:11] VITALS: BP 150/70
--- NOTE | 2019-01-25 06:14 | NUR ---
PT SLEPT THROUGH THE NIGHT. NO DISCOMFORT NOTED THROUGH OUT THE NIGHT. PT NON VERBAL, OPENS EYES TO VERBAL STIMULI. PT IS ON TELE #[address] PT LUNG SOUNDS CONGESTED BILATERALLY. NO RESP DISTRESS NOTED. BREATHING EVEN AND UNLABORED. PT ON 1L TRACH. TRACH SECURED WITH COLLAR. SUCTIONED PRN X1 DURING THE NIGHT.PT HAS HYPOACTIVE BOWEL SOUNDS. LAST BM 01/25. PT HAS PEG TUBE TO LUQ, DRESSING INTACT, NO DRAINAGE NOTED. RESIDUAL WAS 50 ML THIS AM. BAH CATH IN PLACE, DRAINAING YELLOW OUTPUT. PT HAS GENERALIZED WEAKNESS, BED BOUND. ON AIR MATRESS, REPOSTIONED Q 2 HR. PT HAS SKIN TEARS AND ECCHYMOSIS TO BUE, NO DRAINGE NOTED. PT HAS COCCYX ULCER COVERED WITH DRESSING, CDI. PT HAS CENTRAL LINE TO LEFT JUGULAR TO NECK, CDI. WILL CONT TO MONITOR, CALL LIGHT WITHIN REACH. WILL ENDORSE CARE TO DAY SHIFT NURSE.
--- NOTE | 2019-01-25 07:05 | NUR ---
RECEIVED PT FROM AMADOR RN. PT LAYING IN BED WITH BOTH EYES OPEN. NONVERBAL. UNABLE TO ASSESS ORIENTATION. NO S/S OF ACUTE DISTRESS. NO S/S OF PAIN. TRACH COLLAR IN PLACE, MIDLINE, SUCTION AT BEDSIDE. 1L OXYGEN RUNNING TO TRACH. NO S/S OF RESP. DISTRESS. RR EVEN/SHALLOW/UNLABORED. CALM/COOPERATIVE. NO CHEST PAIN. GTUBE IN PLACE TO LUQ, DRESSING CDI. TUBE FEEDING RUNNING AT 50ML/HR WITH 30ML H2O FLUSH Q 6HRS. BAH IN TACT, DRAINING TO GRAVITY. AIR MATTRESS IN PLACE. SKIN TEARS TO BUE COVERED BY VERSATEL. CDI. LIJ IV WNL, SITE WNL. IV FLUIDS FLOWOING. NO REDNESS, NO SWELLING, NO INFILTRATION. PATENT. FALL PREC IN PLACE. BLE ELEVATED. OPTIFOAM IN PLACE TO COCCYX, CDI. BED IN LOW POSITION. CALL LIGHT WITHIN REACH. SIDE RAILS UP X2. WILL CONTINUE TO MONITOR.
[2019-01-25 08:08] VITALS: BP 155/89
--- NOTE | 2019-01-25 10:17 | NUR ---
CALLED TO [facility], SPOKE TO JOSESITO, SHE STATES [facility] [place] [place] HAS NO ISOLATION ROOM AVAILABLE TODAY UNLESS PATIENT'S MRSA IS COLONIZED. JESU MADE AWARE.
[2019-01-25 11:54] VITALS: BP 141/77
--- NOTE | 2019-01-25 12:43 | NUR ---
RECEIVED ORDER FROM JESU, PATIENT TO BE OFF ISOLATION AT THE SUBACUTE UNIT. PATIENT IS COLONIZED. CALLED AND INFORMED TO JOSESITO AT [facility], ROOM ASSIGNED TO 8A. [facility] ARRANGED TO PICK PATIENT UP AT 1500 TODAY.
--- NOTE | 2019-01-25 13:30 | NUR ---
PT HAD SMALL BM. EDMUND CARE PROVIDED. DRESSING TO COCCYX SOILED. DRESSING REMOVED, MODERATE PURULENT DRAINAGE NOTED. WOUND CARE PROVIDED TO PATIENT PER PHYSICIAN ORDERS: WOUND TO COCCYX: CLEANED WITH WOUND CARE SOLUTION, PATTED DRY GENTLY, PACKED WITH CALCIUM ALGINATE DRESSING TO WOUND BED, COVERED WITH 4X4 DRESSING, COVERED BY OPTIFOAM. WOUND CARE PROVIDED TO BUE SKIN TEARS: CLEANSED WITH NS, PATTED DRY, VERSATAL APPLIED. SCANT DRAINAGE NOTED TO SKIN TEARS, SEROSANGUINOUS. CENTRAL LINE DRESSING TO LIJ CHANGED. PT TOLERATED PROCEDURES WELL. DRESSING TO GTUBE CDI. NOT DUE FOR CHANGE. PT CALM/COOPERATIVE, NONVERBAL. TRACH MIDLINE. NO S/S OF ACUTE RESPIRATORY DISTRESS ON 1L. LIJ WNL, IV FLUIDS FLOWING. BAH IN TACT DRAINING CLEAR/YELLOW URINE. PEG TUBE FEEDING RUNNING AT 50ML/HR. HOB ELEVATED >45 DEGREES. BED IN LOW POSITION. CALL LIGHT WITHIN REACH. WILL CONTINUE TO MONITOR.
--- NOTE | 2019-01-25 14:21 | NUR ---
Follow-up Nutrition Assessment Dx: G-Tube malfunction Labs: (01/23) Na 151H, BG 135H, H/H 7.4L/23L Meds: D5%, Hydralazine, [place], Norvasc, Protonix, Rocephin, Synthroid, Tylenol, Zofran Current Nutrition Support: G-Tube with Jevity 1.2 @ goal rate 50 mL/Hr with 30 mL FWF Q6H. TF intake: (01/25) 950 mL (01/24) 1641 mL (01/23) 600 mL. Intake meeting >75% estimated needs. I and O: (01/25) 3250/2825 +425 (01/24) 4333/3000 +1333 (01/23) 3740/2450 +1290. Noted with positive fluid balance with expected weight fluctuations Residuals TF: <10 mL per fleet dispatch manager notes. Weights: 45.5 kg Skin: Stg IV sacralcoccyx P/U, GT sx site, trach site jv stoma (intact), B/L heels blanchable redness, multiple skin tears and ecchymosis to BUE per line staker notes. Edema: Non pitting to RUE Last BM: x 3 (01/25) New PEG was placed on 01/21 and IV ABX treatment was initiated for + results from wound culture per provider progress notes. Pt. non-verbal at baseline and unable to answer nutrition related questions. Tolerating TF well with minimal GRV and no GI distress per RN notes. TF running at 50 mL/Hr. Awaiting call back from provider to discuss nutrition recommendations for wound healing support. Estimated Nutritional Needs based on: CBW 45 kg Energy: 8101-1442 kcal/d (30-35 kcal/kg-P/U and Sx wound healing support) Protein: 68-76 g/d (1.5-1.7 g/kg-P/U and wound healing support) Fluid: 1640-7975 mL/d (1 mL/kcal) or per doctor Nutrition Diagnosis 1. Malnutrition r/t increased metabolic demands, HIV, G-Tube dependence AEB BMI 17.2 (Ongoing). 2. Increased nutrient needs r/t altered skin integrity and increased metabolic demands AEB presence of Stg IV P/U to sacralcoccyx region, multiple skin tears to BUE, and G-tube Sx site wound. (new-ongoing) Intervention 1. Continue Jevity 1.2 @ 50 mL/Hr with 60 mL FWF Q4H to provide 1440 kcal, 67 g protein, and 968 mL FW to meet >75% estimated kcal and protein needs. 2. Recommendation to add MVI QD, Vit C in liquid/crushed form to G-Tube for wound healing support on Stg IV P/U to sacralcoccyx and G-tube Sx wound. Monitor/Evaluate Previous goal: TF/TPN at least 75% of estimated needs (met) Goal: TF/TPN at least 75% of estimated needs Monitor: TF/TPN intake, Labs, GI function, weights F/U in 2-3 days as high risk (01/27-01/28)
[2019-01-25 16:41] VITALS: BP 137/79
[2019-01-25 16:50] VITALS: BP 137/79
--- NOTE | 2019-01-25 18:18 | NUR ---
PT LAYING IN BED RESTING. NO S/S OF ACUTE DISTRESS. NO SOB ON 1L TO TRACH. TRACH MIDLINE. IV TO LIJ CENTRAL LINE, SITE WNL. NO REDNESS, NO SWELLING, NO INFILTRATION. PATENT AND FLUSHES WELL. DRESSING CDI. PEG TUBE IN PLACE TO LUQ ABDOMEN, <10CC RESIDUAL OUTPUT NOTED. DRESSING CDI. TUBE FEEDING JEVITY 1.2L RUNNING AT 50CC/HR. TOLERATING WELL. NO N/V. HAD BM X2 TODAY. BAH IN TACT DRAINING TO GRAVITY, TOTAL OUTPUT 1250CC CLEAR/YELLOW, NO FOUL ODOR NOTED. DRESSINGS TO BUE WOUNDS CDI, DRESSING TO SACRAL COCCYX CDI. SEE CHART FOR DISCHARGE PICTURES. BLE ELEVATED. AIR MATTRESS IN PLACE. PT CALM/COOPERATIVE. NONVERBAL. OPENS EYES SPONTANEOUSLY. NO S/S OF PAIN. HOB ELEVATED 45 DEGREES. BED IN LOW POSITION. CALL LIGHT WITHIN REACH. WILL CONTINUE TO MONITOR.
--- NOTE | 2019-01-25 18:41 | NUR ---
PT BEING DISCHARGED TO [facility], ROOM 8. FOLLOWED BY DR. STEWART. REPORT GIVEN TO PRAFUL GUAMAN, SEE PREVIOUS NOTE FOR TIME. TAKEN BY AUBREY. DAUGHTER, QIANA AT BEDSIDE. TRACH MIDLINE W/ 1L OXYGEN. SUCTIONED. SCANT CLEAR DRAINAGE NOTED. LIJ SALINE LOCKED. SITE WNL. DRESSING CDI. BAH IN TACT. DRESSINGS CDI TO BUE AND SACRALCOCCYX. PEG TUBE IN TACT TO LUQ ABD. BELONGINGS WITH FAMILY. ENDORSED TO [facility].
== END 2019-01-25 18:43 | DRG 254 ==
LOC: ED 14:18 → MU 16:13 → DU 16:13 → MU 16:50 → DU 01-21 23:18
PROVIDERS: Emergency Medicine; Internal Medicine; Internal Medicine Gastroenterology; ADMIT Internal Medicine
PROC: 0D20XUZ Change Feeding Device in Upper Intestinal Tract, External Approach (ICD-10-PCS; principal; 2019-01-21 12:30)
DX: Z43.1 Encounter for attention to gastrostomy (principal); N17.0 Acute kidney failure with tubular necrosis; E43 Unspecified severe protein-calorie malnutrition; L89.154 Pressure ulcer of sacral region, stage 4; E87.0 Hyperosmolality and hypernatremia; N39.0 Urinary tract infection, site not specified; E86.0 Dehydration; D63.8 Anemia in other chronic diseases classified elsewhere; K94.23 Gastrostomy malfunction; B96.4 Proteus (mirabilis) (morganii) as the cause of diseases classified elsewhere; L08.9 Local infection of the skin and subcutaneous tissue, unspecified; E03.9 Hypothyroidism, unspecified; F80.9 Developmental disorder of speech and language, unspecified; I10 Essential (primary) hypertension; Z66 Do not resuscitate; Z79.82 Long term (current) use of aspirin; Z68.1 Body mass index [BMI] 19.9 or less, adult
CPT/HCPCS: 43235; 43760; 82962; C9113; G0378; J0360; J0696; J1200; J1610; J2250; J2310; J3010; J3370; J3480; J3490; J7030; J7042; J7050; J7070; J7620; Q0092

== ENCOUNTER 2019-03-16 11:00 | Inpatient (IN) | payer OTHER, MEDICARE ==
[~2019-03-16] VITALS: Ht 162.6 cm; Wt 53.5 kg
[~2019-03-16 11:00] MED LIST: ASPIR 8181 MG GT; CIPRO250 MG PO; COLACE100 MG; HYDRALAZINE HCL50 MG GT; LEVOTHYROXIN0.025 M2 GT; NEPHRO-VITE VITA1 EA RC; NOR5 PEG; NORCO1 TA2 PEG; PEPCID20 MG GT; ROC1I IM; VAN1I IV
[2019-03-16 11:10] VITALS: Ht 162.6 cm; Wt 53.5 kg
--- NOTE | 2019-03-16 11:13 | NUR ---
SPOKE WITH KRISTOPHER BAE SHE WILL PROVIDE ED STAFF WITH IRRIGATION BAG FOR BLADDER IRRIGATION.
[2019-03-16 11:31] LABS: BASOPHIL % 0.1 % (0-2); PLATELET COUNT 255 x10^3mcL (130-400)
[2019-03-16 11:43] LABS: CALCIUM 9.2 mg/dL (8.5-10.1); CARBON DIOXIDE 28.8 mmol/L (21-32); CHLORIDE SERUM 92 mmol/L (98-107); CREATININE SERUM 0.8 mg/dL (0.6-1.0); GLUCOSE SERUM 181 mg/dL (74-106); POTASSIUM SERUM 4.2 mmol/L (3.5-5.1); SODIUM SERUM 127 mmol/L (136-145)
[2019-03-16 11:45] LABS: RED CELL DISTRIBUTION WIDTH 15.3 % (11.5-14.5)
--- NOTE | 2019-03-16 11:45 | NUR ---
RESPIRATORY BEDSIDE, PATIENT SATS AT 100%, PT APPEARED TO NEED SUCTIONING. RESPIRATORY CULTURE OBTAINED PER MD ORDERS.
[2019-03-16 11:47] LABS: ALBUMIN 2.4 g/dL (3.4-5.0); ALKALINE PHOSPHATASE 111 U/L (46-116); ALT/SGPT 27 U/L (14-59); AST/SGOT 32 U/L (15-37); BILIRUBIN TOTAL 0.4 mg/dL (0.20-1.00); MAGNESIUM 1.7 mg/dL (1.8-2.4); TOTAL PROTEIN, SERUM 7.1 g/dL (6.4-8.2)
--- NOTE | 2019-03-16 12:00 | NUR ---
ELIZABETH BLADDER IRRIGATION COMPLETED. PATIENT NOTED TO PASS LARGE CLOTS. CLEAR, RED URINE FLOWING TO BAG. WILL CONTINUE TO MONITOR.
--- NOTE | 2019-03-16 12:30 | NUR ---
PATIENT CLEANED UP, LINENS CHANGED, PLACED IN GOWN AND ON GURNEY. PT RESTING WITH EYES CLOSED. NO SS OF DISTRESS NOTED. WILL CONTINUE TO MONITOR.
--- NOTE | 2019-03-16 13:33 | NUR ---
STARTED BLADDER IRRIGATION WITH 2ND 300O ML NS- WILL CONTINUE TO MONITOR.
--- NOTE | 2019-03-16 13:47 | NUR ---
MEDICATED PER MD ORDERS
[2019-03-16 14:18] LABS: UA SPECIFIC GRAVITY <=1.005 (1.005-1.035); microscopic required? YES; urine erythrocyte 3+ (NEGATIVE)
--- NOTE | 2019-03-16 14:20 | NUR ---
RESPIRATORY BEDSIDE SUCTIONING PATIENT.
--- NOTE | 2019-03-16 14:48 | NUR ---
EMPTIED 1500 ML SANGUINOUS URINE- NO CLOTS NOTED.
--- NOTE | 2019-03-16 14:59 | NUR ---
STARTED FLUIDS, NS PER MD ORDERS.
[2019-03-16 15:28] LABS: CHOLESTEROL/HDL RATIO 2.6
--- NOTE | 2019-03-16 16:39 | NUR ---
REPORT PROVIDED TO PRAFUL ROSE FOR CONTINUED CARE OF PATIENT.
--- NOTE | 2019-03-16 17:00 | NUR ---
RECEIVED PT FROM ED VIA [employer], PT HAS HER EYES OPEN, DOES NOT FOLLOW COMMANDS, NON-VERBAL, PUPILS ARE SLUGGISH. NO SOB NOTED, LUNG SOUNDS DIMINISHED ON THE BASES, O2 SAT=98% ON 2LPM/NC, ON TRACH COLLAR. NO S/S OF CHEST PAIN/PRESSURE, SR ON THE MONITOR, HR AT 98. NO S/S OF ABDOMINAL DISCOMFORT. BOWEL SOUNDS ACTIVE. W/ PEG TUBE IN THE ABDOMEN, CLAMPED. W/ 3-WAY BAH CATHETER [place] 18, BLADDER IRRIGATION ONGOING, NOTED PINK COLORED URINE WITHOUT ANY BLOOD CLOTS NOTED. W/ ECCHYMOSIS ON THE MID CHEST AND BUE, W/ BLOOD BLISTER NOTED ON THE RIGHT HAND, 6CM X 9CM X 1CM OPEN ULCER ON THE SACRAL AREA DRAINING WITH MINIMAL AMOUNT OF YELLOWISH DRAINAGE BUT NO FOUL ODOR NOTED (COVERED W/ OPTIFOAM), W/ BLANCHABLE ERYTHEMA ON THE LEFT SIDE OF THE ABDOMEN. PLACED ON AIR MATTRESS. SIDE RAILS UPX2. CALL LIGHT ON REACH. HOB ELEVATED AT 30 DEG. FAMILY AT BEDSIDE. PRIMARY NURSE SUPIN AT BEDSIDE FOR CONTINUITY OF CARE
[2019-03-16 17:30] VITALS: BP 172/99
--- NOTE | 2019-03-16 18:00 | NUR ---
FAMILY AT BEDSIDE, UPDATED PLAN OF CARE. IVF NS AT 60ML/HR INFUSING WELL TO LT WRIST IV SITE. BAH CATH DRAINING NOTED PINISH URINE IN COLOR, PER DOCTOR MATTHEW HOLD BLADDER IRRIGATION FOR NOW. G TUBE RESIDUAL CHECKED NOTED SMALL AMOUNT OF YELLOWISH GI CONTENT <5ML. G TUBE CLAMPED. FALL PRECAUTION MAINTAINED. SIDERAILS UP X4. BED IN LOWEST POSITION.
[2019-03-16 18:32] VITALS: BP 172/99
--- NOTE | 2019-03-16 19:15 | NUR ---
RECEIVED REPORT FROM MILTON BASILIO. ASSUMING ALL CARE
--- NOTE | 2019-03-16 20:00 | NUR ---
BAH CATH CLAMPED AT THIS TIME IN PREPARATION FOR RENAL/BLADDER US
--- NOTE | 2019-03-16 20:15 | NUR ---
RECEIVED PT LAYING IN BED. PT IS NONVERBAL. DOES NOT FOLLOW SIMPLE COMMANDS/DOES NOT TRACK. PUPILS WITH SLUGGISH RESPONSE TO LIGHT, 3 MM BILAT. RESPONDS TO TACTILE STIMULI. TRACH IN PLACE. SMALL AMOUNT OF CLEAR SECRETIONS NOTED WHEN SUCTIONED. BREATHING IS E/U WITH TRACH. T-PIECE IN PLACE @ 2 LPM. LUNGS SOUND CLEAR TO BUL AND DIMIN TO BLL. SYMMETRICAL CHEST EXPANSION NOTED. PT ON TELE # 18. S1/S2 HEART SOUNDS AUSCULTATED. CHEST WALL EQUAL AND SYMMETRICAL. HR 118. PALPABLE PULSES X4 EXTREMITIES. SKIN IS WARM AND DRY. NO EDEMA NOTED. CAP REFILL < 3. LFA IV IN PLACE WITH NO S/S OF INFILTRATION NOTED. GENERALIZED WEAKNESS. PT ON BEDREST. AIR MATTRESS IN PLACE. CONTRACTURES NOTED TO BUE. PT ON JEVITY @ 30 ML/HR WITH 200 CC FWF Q6H. GRV=0. TOLERATING WELL. ABD IS SOFT, ROUND, NONTENDER TO PALPATION. BOWEL SOUNDS ACTIVE X4 QUADRANTS. NO BM NOTED. PEG TO LUQ IN PLACE. BAH IS INTACT/SECURED, DRAINING VIA GRAVITY WITH PINK COLORED URINE. NO LABIAL EDEMA/VAGINAL DISCHARGE NOTED. PRESSURE ULCER NOTED TO SACRAL AREA. ECCHYMOSIS NOTED TO CHEST AND BUE. BLANCHABLE ERYTHEMA NOTED LEFT ABD. BLOOD BLISTER TO R HAND. PT ON TURN SCHED Q2H AND PRN FOR COMFORT. PT IS CALM AND COOPERATIVE. BED IN LOW POSITION. CALL LIGHT IN REACH. WILL CONT TO MONITOR
[2019-03-16 21:01] VITALS: BP 121/88
--- NOTE | 2019-03-16 21:10 | NUR ---
GRV=5. JEVIITY TF ADVANCED TO 40 ML/HR WITH 200 CC FWF Q6H. WILL CONT TO MONITOR
--- NOTE | 2019-03-16 22:00 | NUR ---
AIR HOLE DRILLER AT BEDSIDE
--- NOTE | 2019-03-16 22:25 | NUR ---
ULTRASOUND COMPLETED AT THIS TIME. BAH CATH UNCLAMPED.
--- NOTE | 2019-03-16 22:30 | NUR ---
GRV=0. JEVIITY TF ADVANCED TO 50 ML/HR WITH 200 CC FWF Q6H. WILL CONT TO MONITOR
--- NOTE | 2019-03-17 02:07 | NUR ---
PT IS SLEEPING, AROUSABLE. NS INFUSING @ 60 ML/HR WITH NO S/S OF INFILTRATION NOTED. BREATHING IS E/U ON TRACH T-PIECE @ 2 LPM. WILL CONT TO MONITOR
--- NOTE | 2019-03-17 05:15 | NUR ---
FULL BED BATH PROVIDED. HEELS OFFLOADED. AIR MATTRESS IN PLACE. NS INFUSING @ 60 ML/HR WITH NO S/S OF INFILTRATION NOTED. TRACH T-PIECE IN PLACE @ 2 LPM. BREATHING IS E/U. RISE AND FALL OF CHEST SYMMETRIC. BAH IS INTACT/SECURED, DRAINING VIA GRAVITY WITH NO DEPENDENT LOOPS. WOUND CARE PROVIDED PER ORDER. NO S/S OF DISTRESS NOTED. BED IN LOW POSITION. CALL LIGHT IN REACH. WILL CONT TO MONITOR
[2019-03-17 05:18] VITALS: BP 162/88
[2019-03-17 06:37] LABS: BASOPHIL % 0.1 % (0-2); PLATELET COUNT 201 x10^3mcL (130-400)
[2019-03-17 06:48] LABS: RED CELL DISTRIBUTION WIDTH 15.3 % (11.5-14.5)
[2019-03-17 06:58] LABS: CALCIUM 8.5 mg/dL (8.5-10.1); CARBON DIOXIDE 27.9 mmol/L (21-32); CHLORIDE SERUM 102 mmol/L (98-107); CREATININE SERUM 0.7 mg/dL (0.6-1.0); GLUCOSE SERUM 166 mg/dL (74-106); MAGNESIUM 2.2 mg/dL (1.8-2.4); PHOSPHOROUS 2.6 mg/dL (2.5-4.9); POTASSIUM SERUM 3.7 mmol/L (3.5-5.1); SODIUM SERUM 139 mmol/L (136-145)
--- NOTE | 2019-03-17 07:00 | NUR ---
REPORT GIVEN TO MILTON BASILIO FOR CONTINUITY OF CARE. ALL QUESTIONS/CONCERNS ADDRESSED. ENDORSING ALL CARE
--- NOTE | 2019-03-17 07:20 | NUR ---
SEEN IN BED WITH EYES CLOSED. EASILY TO AROUSE, NON VERBAL, SLUGGISH PUPLIS, DOES NOT TRACT. NO SOB NOTED ON TRACH WITH T-PIECE AT 2LPM, SUCTIONED PERFORMED NOTED SMALL AMOUNT OF WHITISH SECRETION. DIMINISHED LUNG SOUND TO BASES. G TUBE TO LUQ WITH JEVITY 1.2 FEEDING AT 50 ML/HR AND FWF 200ML Q 6HRS. GRV=5ML, REPLACED, ABDN SOFT AND FLAT. BAH CATH DRAINING TO GRAVITY WITH NO DEPENDENT LOOP, NOTED RICHARD URINE IN COLOR. OPTIFOAM TO BUTTOCK INPLACE. SCD TO BLE INPLACED. BED RIDDEN, CONTRACTED TO EXTREAMITIES, ON AIRLOSS MATTRESS, TURN AND REPOSTION Q 2HRS WILL BE CONTINUED, IVF NS TO LFA IV SITE NO ERYTHEMA OR INFILTRATION, IVF INFUSING AT 60ML/HR. SEIZURE PRECAUTION MAINTAINED, ALL SIDERAILS UP X4 PADDED UP. ON CONTACT ISOLATION FOR HX OF MRSA WOUND.
--- NOTE | 2019-03-17 08:40 | NUR ---
PATIENT'S DAUGHTER AT BEDSIDE,CURRENT CONDITION AND PLAN OF CARE UPDATED.
--- NOTE | 2019-03-17 09:00 | NUR ---
AM SCHEDULED MEDS GIVEN BY CALCULATOR OPERATOR UNDER UPSERVISION OF INSTRUCTOR.
[2019-03-17 09:35] VITALS: BP 150/88
[2019-03-17 13:13] VITALS: BP 158/89
--- NOTE | 2019-03-17 14:30 | NUR ---
SUCTIONED NOTED DONE BY RT AT BEDSIDE. NO RESP DISTRESS NOTED. GRV=10ML, REPLACED, G TUBE FEEDING CONTINUED AT 50ML/HR WITH FWF AT 200ML Q 6HRS. REPOSITIONED AND KEPT HOB ELEVATED AT 45DEG. SCD INPLACE. LEVAQUIN IVPB INFUSING WELL TO LFA IV SITE. NO SZ ACTIVITY AT THIS TIME.
--- NOTE | 2019-03-17 15:37 | NUR ---
WOUND CARE EVALUATION NOTE: REASON FOR EVALUATION: PRESSURE ULCER WOUND SKIN ASSESSMENT DONE ON THIS 73 Y/O FEMALE PT ADMITTED WITH CHRONIC SACRALCOCCYX PRESSURE ULCER, SKIN WARM AND DRY, SEVERE CONTRACTURE TO RIGHT WRIST, STIFFNESS TO BLE. NO HAIR GROWTH TO BLE. DORSAL PEDAL PULSES PRESENT AND NORMAL. BLANCHABLE TO BILATERAL HEELS WITH THIN CALLUS. PLAN OF CARE DISCUSSED WITH PRIMARY RN. INTEGUMENTARY: -TRACH SITE EDMUND STOMA SKIN DRY AND CLEAN. SKIN INTACT. -GT SITE EDMUND-STOMA SKIN INTACT -SACRALCOCCYX PRESSURE INJURY STAGE 4, MUSCLE OBSERVED, 100 % GRANULATING TISSUE WITH 1U1W2BD, UNDERMINING 0.9CM 4 TO 5 O'CLOCK DIRECTION, DARK PURPLE COLOR TO WOUND EDGE, EDMUND-WOUND SKIN INTACT, SMALL AMOUNT SEROSANGENOUS DRAINAGE, MILD ODOR -BILATERAL HEELS BLANCHABLE REDNESS RECOMMENDATIONS: -CLEANSE SACRALCOCCYX PRESSURE ULCER WITH WOUND CARE SOLUTION, PAT DRY, PACK WITH THERAHONEY DRESSING SHEET TO WOUND BED, COVER WITH ISLAND DRESSING AND CHANGE DRESSING ON SATURDAY, SATURDAY, SATURDAY AND PRN IF SOILING -HEEL PROTECTORS BILATERAL HEELS -TURN AND REPOSITION PATIENT Q 2H -ASSESS AND MONITOR SKIN CONDITION DURING POSITION CHANGE -OFFLOAD BILATERAL HEELS BY PLACING PILLOWS UNDER CALVES AT ALL TIMES, UNLESS OTHERWISE CONTRAINDICATED -PRESSURE REDISTRIBUTION SURFACE THERAPY -KEEP SKIN CLEAN AND DRY AT ALL TIMES ALL ABOVE RECOMMENDATIONS DISCUSSED WITH PRIMARY RN WILL FOLLOW UP Q7-10 DAYS, PLEASE CONTACT WOUND CARE NURSE FOR ANY QUESTIONS OR CHANGE OF WOUND CONDITION
--- NOTE | 2019-03-17 15:49 | NUR ---
SEEN BY TECHNICAL PUBLICATIONS WRITER HALLIE, NOTED ORDER FOR WOUND CARE, WILL BE CARRIED OUT.
--- NOTE | 2019-03-17 17:00 | NUR ---
DRSG TO COCCYX REMOVED, CLEANSED WITH WOUND CLEANSING SOLUTION, PAT DRY, THERAHONEY PATCH APPLIED AND COVERED WITH OPTIFOAM, TURNED AND REPOSTIONED. RECEIVED A CALL FROM [employer] THAT PATIENT HAVING SVT TR=[id number] DURING DRSG CHANGED. NO RESP DISTRESS NOTED AT THIS TIME.
--- NOTE | 2019-03-17 17:05 | NUR ---
NORCO 1 TAB GIVEN VIA G TUBE FOR PAIN. PATIENT HR WENT BACK TO NSR AT THIS TIME.
[2019-03-17 18:16] VITALS: BP 139/85
--- NOTE | 2019-03-17 20:00 | NUR ---
OPENS EYES SPONTANEOUSLY, APPEARS TO TRACK. NON-VERBAL. HOB ELEVATED 35 DEG. TRACH TO TPIECE AT 2LPM OF O2 VIA NC. LUNG SOUNDS DIMINISHED. PT COUGHED, TRACH SUCTIONED, SUCTIONED SCANT AMOUNT OF LIGHT BROWN SPUTUM. O2 SAT 98%. ON LOW AIR LOSS MATTRESS, DRESSING TO SACRUM INTACT. ECCHYMOSES TO BUE AND CHEST. TURNED AND REPOSITIONED TO RIGHT SIDE WITH ASSISTANCE FROM MATT MIRANDA. IVF OF NS AT 60ML/HR. IV SITE TO LEFT FOREARM. CALL LIGHT WITHIN EASY REACH. ON CONTACT ISOLATION.
[2019-03-17 21:19] VITALS: BP 143/72
--- NOTE | 2019-03-17 23:11 | NUR ---
EYES CLOSED, BREATHING EVEN AND UNLABORED ON T PIECE TO TRACH 2LPM OF O2. NEEDED TO SUCTION ONCE, SCANT SPUTUM. HOB KEPT ELEVATED 30 DEG. GASTRIC RESIDUAL < 5 ML, REPLACED. IV SITE TO LEFT FOREARM FREE FROM SWELLING AND ERYTHEMA. CHANGED ALL IV LINES.
--- NOTE | 2019-03-17 23:13 | NUR ---
LATE ENTRY: - VANCO TROUGH 10.2. PHARMACIST CALLED TO STATE [facility] TO ADMINISTER DUE VANCOMYCIN IVPB.
--- NOTE | 2019-03-18 02:19 | NUR ---
EYES CLOSED, BREATHING UNLABORED. HOB KEPT ELEVATED 30 DEG. IVF INFUSING WELL. IV SITE FREE FROM ERYTHEMA OR SWELLING.
--- NOTE | 2019-03-18 04:25 | NUR ---
REMOVED DRESSING FROM G TUBE STOMAL SITE. CLEANSED AREA WITH SOAP AND WATER, PATTED DRY. APPLIED Z GUARD TO PERISTOMAL SITE, PLACED DRAIN SPONGE TO SITE, SECURED WITH PAPER TAPE. TURNED AND REPOSITIONED PT WITH ASSISTANCE FROM NURSE EVANGELINA. GASTRIC RESIDUAL CHECKED, < 5ML, REPLACED. IV SITE TO LEFT FOREARM INTACT, FREE FROM SWELLING AND ERYTHEMA. IVF INFUSING WELL. HOB KEPT ELEVATED 30 DEG. BREATHING UNLABORED.
[2019-03-18 05:43] VITALS: BP 132/81
[2019-03-18 06:18] LABS: BASOPHIL % 0.2 % (0-2); PLATELET COUNT 176 x10^3mcL (130-400)
[2019-03-18 06:28] LABS: CARBON DIOXIDE 26.9 mmol/L (21-32); CHLORIDE SERUM 106 mmol/L (98-107); CREATININE SERUM 0.6 mg/dL (0.6-1.0); GLUCOSE SERUM 145 mg/dL (74-106); MAGNESIUM 1.9 mg/dL (1.8-2.4); PHOSPHOROUS 2.5 mg/dL (2.5-4.9); POTASSIUM SERUM 3.6 mmol/L (3.5-5.1); SODIUM SERUM 141 mmol/L (136-145)
[2019-03-18 06:36] LABS: RED CELL DISTRIBUTION WIDTH 16.1 % (11.5-14.5)
--- NOTE | 2019-03-18 06:42 | NUR ---
BED BATH, BAH CARE, ORAL CARE DONE WITH ASSISTANCE FROM MATT CALIX. GOWN AND LINEN CHANGED. AWAKE, TRACKS. STILL NON VERBAL. TRACH TO TPIECE ON 2LPM OF O2 VIA NC. IV SITE FREE FROM ERYTHEMA OR SWELLING, IVF INFUSING WELL. TURNED AND REPOSITIONED. ON LOW AIR LOSS MATTRESS. SUCTIONED SCANT AMOUNT OF SPUTUM FROM TRACH. O2 SAT 100%. HOB KEPT ELEVATED 35 DEG.
--- NOTE | 2019-03-18 07:10 | NUR ---
RECEIVED REPORT FROM AUGUSTUS RN AT BEDSIDE, PT IN BED IN NO ACUTE DISTRESS
--- NOTE | 2019-03-18 07:15 | NUR ---
PT IN BED, IN NO ACUTE DISTRESS, OPENS EYES SPONTANEOUSLY, NON-VERBAL. HOB ELEVATED, ASPIRATION PRECAUTION FOLLOWED, TRACH PATENT, DRESSING CDI, 2L/MIN, NC, 92%, LUNGS DIM BL, NO SOB/COUGH AT THIS TIME, TELE #8, HR-105, CHEST RISE SYMMETRICALLY, GT PATENT AND INFUSING WELL, NO RESIDUE NOTED, FC PATENT AND DRAINED WELL, DARK YELLOW URINE, CLEAR, ABD FLAT AND NON-TEND ER TO TOUCH, BS ACTIVE X 4, PALP PULSES, CAP REFILL < 3S, SKIN C/D/W, IV PATENT AND INFUSIGN WELL, DRESSING CDI, BEDBOUND, CONTRACTURE TO ALL EXTREMITIES, LALM, SEE SKIN ASSESSMENT, DRESSING TO SACROCOCCYX PATENT AND INTACT, TURN Q2HR PER PROTOCOL, INCONTINENT, ALL NEEDD ADDRESSED AT THIS TIME, SAFETY PROTOCOL FOLLOWED, CONTINUE TO MONITOR
--- NOTE | 2019-03-18 09:01 | NUR ---
DAUGHTER CALLED AND GOT UPATED W/ PT CONDITION, PT IN BED IN NO ACUTE DISTRESS
--- NOTE | 2019-03-18 09:21 | NUR ---
AM MED GIVEN PER MD ORDER VIA EMAR, TOLERATED WELL, EDUCATED R/T MED, ASE, AND MONITOR GIVEN TO PT, UNABLE TO VERIFY UNDERSTANDING D/T PT CONDITION, TURN Q2H, CONTINUE TO MONTYAKELIN
[2019-03-18 09:30] VITALS: BP 131/74
--- NOTE | 2019-03-18 09:32 | NUR ---
PT NOTED COUGH AND WHEEZING, SUCTION PER PROTOCOL, PT TOLERATED WELL, SAT 95% AT 2L/MIN, TRACH, PT IN BED IN NO ACUTE DISTRESS
[2019-03-18 13:01] VITALS: BP 135/81
--- NOTE | 2019-03-18 14:03 | NUR ---
TURN Q2H, SUCTION D/T PT COUGH AND WHEEZING, TOLERATED WELL, O2 SAT AT 94% AT THIS TIME, TRACH, 2L/MIN, PT IN BED IN NO ACUTE DISTRESS
[2019-03-18 17:17] VITALS: BP 130/110
--- NOTE | 2019-03-18 17:37 | NUR ---
PT IN BED, IN NO ACUTE DISTRESS, NON-VERBAL, TRACH W/ T-PIECE, COLLAR PATENT AND INPLACE, 2L/MIN, NC, TELE, NO FACIAL DROOP/SLURRED SPEECH, IN NO APPARENT DISTRESS/PAIN, IV PATENT AND INFUSING WELL, GT PATENT AND INFUSING WELL, NO RESIDUE AT THIS TIME, FC DRAINED WALL W/ DARK YELLOW URINE, CLEAR, ALL NEEDS ADDRESSED AT THIS TIME, SAFETY MONITOR, WILL ENDORSE TO ONCOMING RN
--- NOTE | 2019-03-18 19:30 | NUR ---
PT IS NON VERBAL. RESPOND TO TACTILE STIMULI. UNABLE TO FOLLOW COMMANDS. TELE #18, NSR. NO SIGN OF CHEST PAIN OR DISTRESS NOTED. PULSES ARE PRESENT. NO EDEMA NOTED. LUNGS ARE DIMINSHED AT CHERISE BASES. TRACH IS MIDLINE, ON 2L OXYGEN VIA T PIECE. EQUAL CHEST RISE AND FALL. NO SIGN OF RESP DISTRESS. BOWEL SOUNDS PRESENT x4. ABD FLAT AND SOFT. BAH BAG BELOW THE BLADDER. NO DEPENDENT LOOP OR KINK NOTED. DRAINING VIA GRAVITY. CLEAR YELLOW URINE NOTED. CONTRACTURES NOTED ON BUE. DRESSING ON COCCYX IS CLEAN AND INTACT. NO DRAINAGE NOTED. SCATTERED, SMALL, CIRCULAR, PURPLISH DISCOLORATION NOTED THROUHGOUT THE BODY. NO SIGNS OF PAIN NOTED. IV ON LFA INTACT AND PATENT. NO SIGN OF INFILTRATION OR IRRITAION NOTED. BED IS AT LOWEST SETTING. CALL LIGHT WITHIN REACH. ON CONTACT ISO. WILL CONTINUE TO MONTIOR.
[2019-03-18 21:11] VITALS: BP 151/97
--- NOTE | 2019-03-19 01:02 | NUR ---
PT IS RESTING IN BED WITH BOTH EYES CLOSED. BREATHING EVEN AND UNLABORED. NO SIGN OF DISTRESS NOTED. EQUAL CHEST RISE AND FALL. BED IS AT LOWEST SETTING. CALL LIGHT WITHIN REACH. WILL CONTINUE TO MONTIOR.
--- NOTE | 2019-03-19 04:25 | NUR ---
REPOSITIONED PT. YELLOWISH DRAINGE NOTED ON COCCYX OPTIFOAM. WOUNDS WAS CLEANSED WITH NS, PAT DRY, DRESSING PLACED AND OPTIFOAM REPLACED. PT TOLERATED WELL. NEW CHUX PROVIDED. PT IN NO DISTRESS. BAH EMPTIED AND BAH CARE PROVIDED.
[2019-03-19 05:34] VITALS: BP 149/81
--- NOTE | 2019-03-19 06:52 | NUR ---
PT IS RESTING IN BED WITH BOTH EYES CLOSED. BREATHING EVEN AND UNLABORED. NO SIGN OF DISTRESS NOTED. TRACH IS MIDLINE AND SUCTION WAS PROVIDED. GT IN PLACE, TOLERATING FEEDING WELL. BAH BAG BELOW THE BLADDER, CLEAR YELLOW URINE NOTED. NO ACUTE EVENT OCCURED AT NIGHT. BED IS AT LOWEST SETTING. CALL LIGHT WITHIN REACH. WILL ENDORSE TO AM NURSE.
--- NOTE | 2019-03-19 07:10 | NUR ---
RECEIVED REPORT FROM DOV RN AT BEDSIDE, PT IN BED IN NO ACUTE DISTRESS
--- NOTE | 2019-03-19 07:39 | NUR ---
PT IN BED, IN NO ACUTE DISTRESS, OPENS EYES SPONTANEOUSLY, NON-VERBAL. HOB ELEVATED, ASPIRATION PRECAUTION FOLLOWED, TRACH PATENT, DRESSING CDI, 2L/MIN, NC, 97%, LUNGS DIM BL, NO SOB/COUGH AT THIS TIME, TELE #8, HR-100, CHEST RISE SYMMETRICALLY, GT PATENT AND INFUSING WELL, NO RESIDUE NOTED, FC PATENT AND DRAINED WELL, LIGHT YELLOW URINE, CLEAR, ABD FLAT AND NON-TENDER TO TOUCH, BS ACTIVE X 4, BM THIS AM, SOFT PER REPORT, PALP PULSES, CAP REFILL < 3S, SKIN C/D/W, IV PATENT AND INFUSIGN WELL, DRESSING CDI, BEDBOUND, CONTRACTURE TO ALL EXTREMITIES, LALM, HEEL PROTECTOR, SEE SKIN ASSESSMENT, DRESSING TO SACROCOCCYX PATENT AND INTACT, TURN Q2HR PER PROTOCOL, INCONTINENT, ALL NEEDD ADDRESSED AT THIS TIME, SAFETY PROTOCOL FOLLOWED, CONTINUE TO MONITOR
[2019-03-19 08:56] VITALS: BP 147/81
--- NOTE | 2019-03-19 08:57 | NUR ---
PT SEEN BY [facility]CHER HAND BLANCA ASHRAF, B[facility]ER HAND MADE AWARE OF DAUGHTER WOULD LIKE [facility] CALL AND UPDATE PT CURRENT CONDITION VIA PHONE, [facility] SAID WILL CALL AFTER ROUND, CHARGE NURSE MARYAM MADE AWARE
--- NOTE | 2019-03-19 09:25 | NUR ---
PT IN BED, IN NO ACUTE DISTRESS, AM MED GIVEN PER MD ORDER VIA EMAR, TOLERATED WELL, NO ASE NOTED AT THIS TIME, CONTINUE TO MONITOR
--- NOTE | 2019-03-19 11:45 | NUR ---
PT IN BED, RESTING W/ EYE CLOSED, IN NO ACCPARENT DISTRESS, IV AND GT INFUSING WELL, TURN Q2H, SKIN KEPT CLEAN AND DRY, CONTINUE TO MONITOR
[2019-03-19 12:15] VITALS: BP 139/72
--- NOTE | 2019-03-19 14:44 | NUR ---
Initial Nutrition Assessment: Jose Shrestha 240B Dx: PNA, gross hematuria anemia PMHx: CKD, HTN, Acute/Chronic respiratory failure s/p tracheostomy PSHx: G tube placement, tracheostomy Labs: 03/19/19: BUN: 21, alb: 2.4, glu: 145, all other labs wnl, lipid panel wnl Meds: Colace, Levaquin, vanco, levothyroxine Diet: Jev 1.2 50 cc/hr x 24 hours to provide 1200 cc/1440 kcal/66.6 g protein/968 cc free water, Free water 200 q6hrs to provide 800 cc qd. PO intake since admission: n/a Ht: 64 inches, Wt: 117.7# BMI: 20.3 Bed scale: (03/19/19) 111.6# (with boot and pillows) IBW: 120# %IBW: 98% UBW: unable to obtain Age: 73 y/o F Food Allergies: none Skin: Alex: 12, open wound on sacrum Edema: none noted GI: Last BM: 03/19/19 Patient admitted for sepsis secondary to UTI, hematuria, possible seizure. Gtube dependent and daughters take care of patient at home. RD Note: visited pt at bedside, TF running at 50 cc/hr, per RN pt tolerating TF. Problem with: N/V/D/C: no Problems with: Chewing: Swallowing: n/a Current appetite: n/a Recent wt change: no %wt change: no Vitamin/Supplement use: no Special diet at home: tube feeding Physical activity: bed bound Nutrition education given (specify specific nutrition education and handout given): Food-drug interactions? Education given? n/a Estimated Nutritional Needs Based on current body weight 53.2 k Energy: 0377-4441 kcal/day (30-35kcal/kg for wound healing) Protein: 64-69 g/day (1.2-1.3 g/kg for wound healing) Fluid: 4806-5118 mL/day (1 mL/kcal) Nutrition Diagnosis: Increased nutritional needs r/t wound healing AEB presence of sacral wound. Intervention 1. Increase TF Jevity 1.2 to 60 cc/hr x 24 hours to provide 1440 cc/1728 kcal/77 g protein/1162 cc free water. 2. Decrease water flush to 150cc q6hrs to provide 600 cc qd. 3. Add MVI w/min. Monitor/Evaluate Goal: TF to meet at least 75% of estimated needs Monitor: Tolerance to TF, Labs, GI function, wound healing F/U HR due 03/21-03/22.
[2019-03-19 16:42] VITALS: BP 138/77
--- NOTE | 2019-03-19 18:15 | NUR ---
PT IN BED, RESTING, EYES CLOSED, IN NO ACUTE DISTRESS, NON-VERBAL, TRACH W/ T-PIECE, COLLAR PATENT AND INPLACE, 2L/MIN, NC, TELE, NO FACIAL DROOP/SLURRED SPEECH, IN NO APPARENT DISTRESS/PAIN, IV PATENT AND INFUSING WELL, GT PATENT AND INFUSING WELL, NO RESIDUE AT THIS TIME, FC DRAINED WALL W/ DARK YELLOW URINE, CLEAR, ALL NEEDS ADDRESSED AT THIS TIME, SAFETY MONITOR, WILL ENDORSE TO ONCOMING RN
--- NOTE | 2019-03-19 19:30 | NUR ---
PT IS AWAKE AND NON VERBAL. UNABLE TO FOLLOW COMMANDS. RESPONDS TO TACTILE STIMULI. ON TELE #18, NSR. NO SIGN OF CHEST PAIN NOTED. PULSES ARE PRESENT. NO EDEMA. TRACH IS CENTERLINE, T PIECE IN PLACE, 2L RUNNING. LUNGS DIMINISHED AT CHERISE BASES. EQUAL CHEST RISE AND FALL. BOWEL SOUNDS PRESENT x4. PEG TUBE ON L ABD. INTACT. JEVITY RUNNING AT 60ML WITH FWF 150ML Q6HR. NO RESIDUAL. PT TOLERATING FEEDING WELL. BAH BAG BELOW THE BLADDER. NO DEPENDENT LOOP. CLEAR YELLOW URINE NOTED. PT IS BED BOUND. ON AN AIR MATTRESS. DRESSING ON COCCYX AREA IS CLEAN AND INTACT. IV ON LFA IS INTACT AND PATENT. NO SIGN OF INFILTRATION OR IRRITATION. BED IS AT LOWEST SETTING. CALL LIGHT WITHIN REACH. BED ALARM IS ON. WILL CONTINUE TO MONTIOR.
[2019-03-19 21:03] VITALS: BP 154/68
--- NOTE | 2019-03-20 01:17 | NUR ---
PT IS RESTING IN BED WITH BOTH EYES CLOSED. NO SIGN OF DISTRESS NOTED. TRACH IS MIDLINE. BAH BELOW THE BLADDER WITH NO DEPENDENT LOOP. TOLERATING FEEDING AT GOAL RATE. IV INTACT. BED IS AT LOWEST SETTING. CALL LIGHT WIHTIN REACH. BED ALARM IS ON. WILL CONTINUE TO MONTIOR.
[2019-03-20 05:11] VITALS: BP 156/62
--- NOTE | 2019-03-20 06:54 | NUR ---
PT IS RESTING IN BED WITH BOTH EYES CLOSED. NO SIGN OF DISTRESS NOTED. PT SOUNDED CONGESTED. SUCTION PROVIDED AND SOUNDS CLEARED UP. PT TOLERATED WELL. FEEDING RUNNING AT GOAL RATE. PT TOLERATING WELL. NO ACUTE EVENT OCCURED DURING SHIFT. BAH BAG BELOW THE BLADDER, CLEAR YELLOW URINE NOTED. BAH CARE PROVIDED. BED IS AT LOWEST SETTING. CALL LIGHT WITHIN REACH. BED ALARM IS ON. WILL ENDORSE TO AM NURSE.
[2019-03-20 07:07] LABS: CALCIUM 7.8 mg/dL (8.5-10.1); CARBON DIOXIDE 27.5 mmol/L (21-32); CHLORIDE SERUM 107 mmol/L (98-107); CREATININE SERUM 0.7 mg/dL (0.6-1.0); GLUCOSE SERUM 137 mg/dL (74-106); POTASSIUM SERUM 4.2 mmol/L (3.5-5.1); SODIUM SERUM 140 mmol/L (136-145)
[2019-03-20 07:22] LABS: BASOPHIL % 0.2 % (0-2); PLATELET COUNT 188 x10^3mcL (130-400)
[2019-03-20 07:32] LABS: RED CELL DISTRIBUTION WIDTH 15.7 % (11.5-14.5)
[2019-03-20 07:54] VITALS: BP 156/92
[2019-03-20 08:10] VITALS: BP 156/92
[2019-03-20] MEDS ORDERED: LINEZOLID600 MG/300 IV (10:49)
[2019-03-20] MEDS ORDERED: AMERINET CHOICE1 PD3 IV (10:49)
[2019-03-20 11:54] VITALS: BP 142/99
--- NOTE | 2019-03-20 12:33 | NUR ---
PATIENT IN BED, FREE FROM ANY SIGNS OF DISTRESS AT THIS TIME. WILL CONTINUE TO MONITOR.
--- NOTE | 2019-03-20 14:19 | NUR ---
PATIENT IN BED, BED TO LOWEST POSITION, PATIENT FREE OF DISTRESS. WILL CONTINUE TO MONITOR.
[2019-03-20 16:06] VITALS: BP 140/90
[2019-03-20 16:46] VITALS: BP 135/83
--- NOTE | 2019-03-20 16:52 | NUR ---
REPORT GIVEN TO PRAFUL FITZGERALD AT [facility]. ALL QUESTIONS ANSWERED AT THIS TIME. APPROVAL FROM DAUGHTER, FOR TRANSFER. ALL FORMS GIVEN TO [facility] AT THIS TIME. PATIENT STABLE AND FREE FROM DISTRESS AT THIS TIME.
== END 2019-03-20 16:50 | DRG 720 ==
LOC: ED 11:00 → DU 15:00
PROVIDERS: Emergency Medicine; Internal Medicine; ADMIT General Practice
DX: A41.9 Sepsis, unspecified organism (principal); N17.0 Acute kidney failure with tubular necrosis; J96.21 Acute and chronic respiratory failure with hypoxia; E43 Unspecified severe protein-calorie malnutrition; J15.1 Pneumonia due to Pseudomonas; L89.154 Pressure ulcer of sacral region, stage 4; Z93.0 Tracheostomy status; D51.9 Vitamin B12 deficiency anemia, unspecified; I48.91 Unspecified atrial fibrillation; R13.10 Dysphagia, unspecified; I69.351 Hemiplegia and hemiparesis following cerebral infarction affecting right dominant side; T83.518A Infection and inflammatory reaction due to other urinary catheter, initial encounter; E83.42 Hypomagnesemia; N39.0 Urinary tract infection, site not specified; R31.9 Hematuria, unspecified; I69.320 Aphasia following cerebral infarction; D63.1 Anemia in chronic kidney disease; E87.1 Hypo-osmolality and hyponatremia; B96.5 Pseudomonas (aeruginosa) (mallei) (pseudomallei) as the cause of diseases classified elsewhere; L08.9 Local infection of the skin and subcutaneous tissue, unspecified; B95.62 Methicillin resistant Staphylococcus aureus infection as the cause of diseases classified elsewhere; I12.9 Hypertensive chronic kidney disease with stage 1 through stage 4 chronic kidney disease, or unspecified chronic kidney disease; N18.9 Chronic kidney disease, unspecified; E03.9 Hypothyroidism, unspecified; Z66 Do not resuscitate; Z93.1 Gastrostomy status; Z79.82 Long term (current) use of aspirin; Z68.1 Body mass index [BMI] 19.9 or less, adult; Z16.24 Resistance to multiple antibiotics; Y73.2 Prosthetic and other implants, materials and accessory gastroenterology and urology devices associated with adverse incidents; Y92.129 Unspecified place in nursing home as the place of occurrence of the external cause
CPT/HCPCS: 36600; G0378; J1956; J2020; J2543; J3370; J3475; J7030; J7620; Q0092

== ENCOUNTER → 2019-05-25 | Outpatient (CLI) | payer MEDICARE, OTHER ==
[~2019-05-25] MED LIST changes: +AMERINET CHOICE1 PD3 IV; +LINEZOLID600 MG/300 IV
== END | disposition home or self-care (01) ==
LOC: CT 08:31
PROC: BW24ZZZ Computerized Tomography (CT Scan) of Chest and Abdomen (ICD-10-PCS; principal; 2019-05-25)
DX: J96.10 Chronic respiratory failure, unspecified whether with hypoxia or hypercapnia (principal)

== ENCOUNTER → 2019-06-11 | Outpatient (CLI) | payer MEDICARE, OTHER | END | disposition home or self-care (01) | LOC: CT 09:47 | PROC: BW24ZZZ Computerized Tomography (CT Scan) of Chest and Abdomen (ICD-10-PCS; principal; 2019-06-11) | DX: J96.10 Chronic respiratory failure, unspecified whether with hypoxia or hypercapnia (principal) | CPT/HCPCS: Q9967 ==